=== PATIENT | male | born 1960 | race Caucasian/White ===

== ENCOUNTER 2023-11-08 08:29 | Outpatient (OUT) | payer OTHER, SELFPAY ==
[2023-11-08 08:55] LABS: Basophils Absolute Auto 0.1 10^3/uL (0.0-0.1); Basophils Percent Auto 2.1 % (0.2-2.0); Eosinophils Absolute Auto 0.3 10^3/uL (0.0-0.7); Eosinophils Percent Auto 4.9 % (0.9-7.0); Hematocrit 43.2 % (42.0-54.0); Immature Granulocytes Abs Auto 0.02 10^3/uL (0.00-0.03); Immature Granulocytes Pct Auto 0.4 % (0.0-0.5); Lymphocytes Percent Auto 18.7 % (20.5-60.0); Mean Corpuscular HGB Conc 34.7 g/dL (29.9-35.2); Mean Corpuscular Hemoglobin 31.7 pg (25.9-34.0); Mean Corpuscular Volume 91.3 fL (80.0-94.0); Mean Platelet Volume 11.2 fL (9.5-13.5); Monocytes Absolute Auto 0.6 10^3/uL (0.3-0.8); Monocytes Percent Auto 11.3 % (1.7-12.0); Neutrophils Absolute Auto 3.2 10^3/uL (1.4-6.5); Neutrophils Percent Auto 62.6 % (43.0-75.0); Platelet Count 187 10^3/uL (150-450); Red Blood Count 4.73 10^6/uL (4.70-6.10); Red Cell Distribution Width 12.6 % (11.0-15.0); White Blood Count 5.1 10^3/uL (4.0-11.0)
== END 2023-11-08 08:30 | disposition home or self-care (01) ==
LOC: LAB 08:32
PROVIDERS: PCP Internal Medicine; Visit Provider Internal Medicine
DX: Z00.00 Encounter for general adult medical examination without abnormal findings (principal)
CPT/HCPCS: 36415; 85025

== ENCOUNTER 2024-01-01 20:06 | Outpatient (OUT) | payer OTHER, SELFPAY ==
--- NOTE | 2024-01-01 | XR_ITS ---
[facility] [id number] Patient Name: DYLON JOHNSON MRN: [id number] date: 1960 Sex: M Assigned Patient Location: RAD Current Patient Location: [facility] Accession/Order Number: [id number] Exam Date: 01/01/2024 20:20 Report Date: 01/03/2024 09:21 At the request of: SOPHIA ALEXANDER Procedure: XR lumbar spine 6V w bending EXAMINATION: XR lumbar spine 6V w bending HISTORY: Low back pain M54.5 , right leg pain; no known injury COMPARISON: CT abdomen pelvis 04/26/2021 FINDINGS: BONES: Slight left convex curvature lumbar spine. Minimal grade 1 retrolisthesis of L3 on 4 and anterior listhesis of L4 on 5. Moderate degenerative facet arthropathy L3-L4 through L5-S1. DISC SPACES: Mild narrowing L3-L4 through L5-S1. PARASPINOUS: Negative. No paraspinous abnormality is seen. OTHER: Negative. XR/XR lumbar spine 6V w bending IMPRESSION: 1. Multilevel moderate degenerative changes of lumbar spine; slightly progressed compared to prior study. Electronically authenticated by: CHIP MONTERO Date: 01/03/2024 09:21
--- OUTSIDE RECORDS SUMMARY | 2024-01-01 20:12 | XMS_ITS | CCD ---
Author Name Unknown Address [address] [place] [id number] Organization [facility] Care Team Providers Care Page Makeup System Operator Name Role Phone DR TOO ALEXANDER Primary Care Unavailable REQUEST, NONE LISTED Admitting Unavaila ble REQUEST, NONE LISTED Attending Unavaila ble REQUEST, NONE LISTED Consulting Unavaila ble Too Alexander Unavailable Too Alexander Primary Care Unavailable Allergies Allergy Classification Reported Allergen(s) Allergy Type Date of Onset Reaction(s) Facility (1 source) Sulfonamides (Antibiotic) Drug allergy (disorder) 4 [facility] Repository (2 sources) Sulf-10 Drug allergy Unknown [facility] Other (2 sources) Substance with sulfonamide structure and antibacterial mechanism of action (substance) Drug allergy 4 Unknown [facility] Other Medications Current Medications Medication Drug Class(es) Dates Sig (Normalized) Sig (Original) acetaminophen 325 mg / oxyCODONE hydrochloride 5 mg oral tablet (2 sources) Opioid Agonist Start: 04-13-2018 take 1 tablet by mouth every four to six hours as needed oxyCODONE-Acetamin ophen 5-325 MG 1 tablet as needed Orally every 4-6 hours Mar, Active atorvastatin 20 mg oral tablet (2 sources) HMG-CoA Reductase Inhibitor take 1 tablet by mouth once daily in the evening Atorvastatin Calcium 20 MG TAKE 1 TABLET BY MOUTH ONCE DAILY IN THE EVENING Active Completed/Discontinued Medications Medication Drug Class(es) Dates Sig (Normalized) Sig (Original) gabapentin 300 mg oral capsule (2 sources) Anti-epileptic Agent Start: 12-02-2017 take 1 capsule by mouth once daily at bedtime Gabapentin 300 MG 1 capsule before bedtime Orally Once a day at bedtime for 30 day(s) Nov, Not-Taking/PRN traMADol hydrochloride 50 mg oral tablet (2 sources) Opioid Agonist Start: 12-02-2017 take 1-2 tablets by mouth every four to six hours as needed traMADol HCl 50 MG 1-2 tablet as needed Orally every 4-6 hrs Nov, Not-Taking/PRN Triamcinolone (2 sources) Corticosteroid Start: 08-28-2016 KENALOG - 10 mg Aug, 60 mg Problems Problem Classification Problem Date Documented Da te Episodic/Chronic Disorders of lipid metabolism (1 source) Mixed hyperlipidemia Chronic Other liver diseases (3 sources) Fatty (change of) liver, not elsewhere classified; Translations: [Nonalcoholic fatty liver disease] Chronic Other nervous system disorders (4 sources) Cubital tunnel syndrome; Translations: [Lesion of ulnar nerve, left upper limb] Chronic Other nervous system disorders (4 sources) Carpal tunnel syndrome of right wrist; Translations: [Carpal tunnel syndrome, right upper limb] Chronic Other nervous system disorders (4 sources) Carpal tunnel syndrome of left wrist; Translations: [Carpal tunnel syndrome, left upper limb] Chronic Other nutritional; endocrine; and metabolic disorders (2 sources) Severe obesity; Translations: [Morbid (severe) obesity due to excess calories] Chronic Other nutritional; endocrine; and metabolic disorders (4 sources) Body mass index 30+ - obesity; Translations: [Obesity, unspecified] Chronic Other nutritional; endocrine; and metabolic disorders (1 source) Morbid (severe) obesity due to excess calories Chronic Other nutritional; endocrine; and metabolic disorders (1 source) Body mass index (BMI) 35.0-35.9, adult Chronic Other screening for suspected conditions (not mental disorders or infectious disease) (1 source) Encounter for screening for malignant neoplasm of prostate Episodic Residual codes; unclassified (2 sources) Postprocedural state finding; Translations: [Other specified postprocedural states] Episodic Substance-related disorders (3 sources) Tobacco dependence in remission; Translations: [Nicotine dependence, cigarettes, in remission] Chronic Results Test Name Value Interpretation Reference Range Facility Consent Formson 09-23-2023 Consent Forms [id number] [facility] CMP Standardon 08-14-2023 eGFR Non AA >60 Invalid Interpretation Code [facility] Comment on above: Performed By: #### 1 [id number], [id number], [id number], 9334844, 3763317, 9665191, 8073353, 6574816 #### [facility] (DEFAULT) [address] [place] [address] eGFR AA >60 Invalid Interpretation Code [facility] Comment on above: Performed By: #### 1 [id number], 9229615, [id number], 6662622, 8353048, 7803255, 5134081, 1809612 #### [facility] (DEFAULT) [address] [place] [address] Albumin [Mass/Vol] 4.0 g/dL Normal 3.5-5.0 [facility] Comment on above: Performed By: #### 1 [id number], 5308715, [id number], 9602151, 9534666, 4375030, 0620105, 9268406 #### [facility] (DEFAULT) [address] [place] [address] Alk Phos 82 IU/L Normal 32-91 [facility] Comment on above: Performed By: #### 1 [id number], 3172301, [id number], 5313319, 9942160, 0646796, 2604290, 8424165 #### [facility] (DEFAULT) [address] [place] [address] ALT [Catalytic activity/Vol] 28.0 U/L Normal 17.0-63.0 [facility] Comment on above: Performed By: #### 1 [id number], 4118054, 5663627698, 0800838, 0295363, 3579996, 2713101, 8091453 #### [facility] (DEFAULT) [address] [place] [address] AST [Catalytic activity/Vol] 27 U/L Normal 15-41 [facility] Comment on above: Performed By: #### 1 [id number], 0230488, [id number], 6654126, 7376659, 8883073, 5872064, 2548525 #### [facility] (DEFAULT) [address] [place] [address]57[address] Bili Total 1.0 mg/dL Normal 0.3-1.2 [facility] Comment on above: Performed By: #### 1 [id number], 5587426, 1297088411, 8297920, 9094791, 2903879, 1190743, 4879243 #### [facility] (DEFAULT) [address] [place] [address] 31946 Calcium [Mass/Vol] 9.0 mg/dL Normal 8.9-10.3 [facility] Comment on above: Performed By: #### 1 [id number], 0094873, 9317869842, 4128426, 5909544, 8165170, 5435432, 8962711 #### [facility] (DEFAULT) [address] [place] [address]2961 Chloride [Moles/Vol] 108 mmol/L Normal 101-111 [facility] Comment on above: Performed By: #### 1 [id number], 1403502, 1052928404, 9468422, 4132492, 1550762, 1245756, 4730017 #### [facility] (DEFAULT) [address] [place] [address] 88064 CO2 [Moles/Vol] 26 mmol/L Normal 21-32 [facility] Comment on above: Performed By: #### 1 [id number], 7363977, 8060462121, 5006042, 6488098, 2937159, 1018561, 7853912 #### [facility] (DEFAULT) [address] [place] [address] 93882 Creatinine [Mass/Vol] 0.74 mg/dL Low 0.90-1.30 [facility] Comment on above: Performed By: #### 1 [id number], 4700999, 2775741761, 8851837, 4346811, 0624622, 8928102, 2287119 #### [facility] (DEFAULT) [address] [place] [address] 35591 Glucose [Mass/Vol] 98.0 mg/dL Normal 74.0-118.0 [facility] Comment on above: Performed By: #### 1 [id number], 0007809, 9275059045, 4242575, 1834545, 5953754, 8184712, 0091282 #### [facility] (DEFAULT) [address] [place] [address] 30409 Potassium [Moles/Vol] 3.9 mmol/L Normal 3.6-5.1 [facility] Comment on above: Performed By: #### 1 [id number], 5275277, 6729789987, 4875193, 1046563, 1532013, 4619392, 2826919 #### [facility] (DEFAULT) [address] [place] [address] 66682 Protein [Mass/Vol] 6.6 g/dL Normal 6.5-8.1 [facility] Comment on above: Performed By: #### 1 [id number], 7876481, 4250762557, 6848243, 7010540, 2277404, 0092994, 1617969 #### [facility] (DEFAULT) [address] [place] [address] 25961 Sodium [Moles/Vol] 140.0 mmol/L Normal 136.0-144.0 [facility] Comment on above: Performed By: #### 1 [id number], 6638338, 9387285051, 4170462, 4140530, 9456809, 7453575, 6232766 #### [facility] (DEFAULT) [address] [place] [address] 26270 Urea nitrogen [Mass/Vol] 16 mg/dL Normal 8-26 [facility] Comment on above: Performed By: #### 1 [id number], 4541642, 4412759708, 7740535, 3516299, 7487663, 9857386, 8175067 #### [facility] (DEFAULT) [address] [place] [address] 69981 Albumin/Globulin [Mass ratio] 1.5 {ratio} Normal 1.4-2.6 [facility] Comment on above: Performed By: #### 1 [id number], 4677792, 1807969483, 5871065, 6901623, 9297919, 5834867, 7203179 #### [facility] (DEFAULT) [address] [place] [address] 15256 Anion gap [Moles/Vol] 9.9 mmol/L Normal 5.0-19.0 [facility] Comment on above: Performed By: #### 1 [id number], 1031817, 0874085462, 7546088, 1772597, 1787541, 1336702, 9220696 #### [facility] (DEFAULT) [address] [place] [address] 46224 Globulin (S) [Mass/Vol] 2.6 g/dL Normal 1.5-4.3 [facility] Comment on above: Performed By: #### 1 [id number], 1171772, 1728959496, 2140885, 3252066, 2644993, 2335131, 8473310 #### [facility] (DEFAULT) [address] [place] [address] Osmolality 280 mOsm/L Invalid Interpretation Code [facility] Comment on above: Performed By: #### 1 [id number], 4642378, 6111833224, 4399159, 9959035, 4143053, 1073352, 7786102 #### [facility] (DEFAULT) [address] [place] [address] 13562 Urea nitrogen/Creatinine [Mass ratio] 21.6 mg/mg High 4.6-16.2 [facility] Comment on above: Performed By: #### 1 [id number], 0634225, 3343679827, 6235654, 6330983, 0811785, 6411992, 3207962 #### [facility] (DEFAULT) [address] [place] [address] 42724 GGTon 08-14-2023 Gamma glutamyl transferase [Catalytic activity/Vol] 27.0 U/L Normal 7.0-50.0 [facility] Comment on above: Performed By: #### 1 [id number], 8667154, 8859255491, 2382223, 2820316, 6058506, 5205092, 6557070 #### [facility] (DEFAULT) [address] [place] [address] 03749 Iron Levelon 08-14-2023 Iron [Mass/Vol] 103.0 ug/dL Normal 45.0-182.0 [facility] Comment on above: Performed By: #### 1 [id number], 9111755, 4396604487, 9297124, 0202702, 6392601, 3114916, 8237600 #### [facility] (DEFAULT) [address] [place] [address] 68913 LDHon 08-14-2023 LDH 181.0 IU/L Normal 98.0-192.0 [facility] Comment on above: Performed By: #### 1 [id number], 7188120, 7599442843, 4819116, 5632646, 1865528, 9470152, 3189325 #### [facility] (DEFAULT) [address] [place] [address] 19917 Lipid Panel Standardon 08-14 Cholesterol [Mass/Vol] 254.0 mg/dL High 66.0-200.0 [facility] Comment on above: Performed By: #### 1 [id number], 4627463, 5875088824, 7934235, 5038788, 7543876, 2223380, 8226131 #### [facility] (DEFAULT) [address] [place] [address] 55041 Cholesterol in HDL [Mass/Vol] 56 mg/dL Normal 40-71 [facility] Comment on above: Performed By: #### 1 [id number], 9139157, 4190857025, 1874816, 7613334, 2572088, 8964179, 9219085 #### [facility] (DEFAULT) [address] [place] [address] 61793 Triglyceride [Mass/Vol] 132.0 mg/dL Normal 0.0-150.0 [facility] Comment on above: Performed By: #### 1 [id number], 4730130, 6242942049, 8208820, 6321896, 3909677, 7984239, 3979086 #### [facility] (DEFAULT) [address] [place] [address] 33171 Cholesterol in LDL [Mass/Vol] 171 mg/dL High 1-100 [facility] Comment on above: Performed By: #### 1 144756879, 9745009, 2671043336, 8161646, 7441828, 5476541, 0455296, 3230443 #### [facility] (DEFAULT) [address] [place] [address] 46056 Cholesterol.total/Ch olesterol in HDL [Mass ratio] 4.4 {ratio} Normal 0.0-4.5 [facility] Comment on above: Performed By: #### 1 [id number], 2519405, 9628818682, 4632376, 9924547, 0796598, 4160192, 6306647 #### [facility] (DEFAULT) [address] [place] [address] VLDL. 26 mg/dL Normal 5-40 [facility] Comment on above: Performed By: #### 1 [id number], 1132605, 0884116100, 4813720, 5353437, 9303455, 3980289, 0077620 #### [facility] (DEFAULT) [address] [place] [address] 84341 PSA Screenon 08-14-2023 PSA Screen 0.85 ng/mL Normal 0.00-4.00 [facility] Comment on above: Result Comment: [employer] Access Clinical System (Chemiluminescence) Values obtained with different assay methods or kits cannot be used interchangeably. Results cannot be interpreted as absolute evidence of the presence or absence of malignant disease. Performed By: #### 1 [id number], 1980231, 2295304741, 7896145, 6140925, 0681635, 6333799, 2743157 #### [facility] (DEFAULT) [address] [place] [address] 81582 Phoson 08-14-2023 Phosphate [Mass/Vol] 2.6 mg/dL Normal 2.5-4.6 [facility] Comment on above: Performed By: #### 1 [id number], 6564460, 6871792543, 8654219, 8178702, 7906857, 9036459, 9019543 #### [facility] (DEFAULT) [address] [place] [address] 46840 Uric Acidon 08-14-2023 Urate [Mass/Vol] 7.2 mg/dL Normal 4.8-8.7 [facility] Comment on above: Performed By: #### 1 [id number], 4951303, 5211383927, 8893847, 6980802, 6149383, 7366560, 3393295 #### [facility] (DEFAULT) [address] [place] [address] RUBÉN - LIPID PROFILEon 2022 CHOL-HDL RATIO NORM SEE BELOW Normal [facility] Comment on above: Result Comment: 3.3 - 4.4 LOW RISK 4.4 - 7.1 AVERAGE RISK 7.1 - 11.0 MODERATE RISK >11.0 HIGH RISK Performed By: #### D MAINOR ABDULLAHIL #### [facility] [address] [place] [address] Dr. Neptali Wade Cholesterol [Mass/Vol] 260 mg/dL Critically high <=200 [facility] Comment on above: Performed By: #### D MAINOR ABDULLAHIL #### [facility] [address] [place] [address] Dr. Neptali Wade Cholesterol in HDL [Mass/Vol] 38 mg/dL Critically low 40-60 [facility] Comment on above: Performed By: #### D KAYLEN DLDL #### [facility] [address] [place] [address] Dr. Neptali Wade Cholesterol.total/Ch olesterol in HDL [Mass ratio] 6.8 {ratio} Normal [facility] Comment on above: Performed By: #### D KAYLEN DLDL #### [facility] [address] [address] [address] Neptali Wade HDL NORMAL > or = 60 mg/dl - LOW CARDIOVASCULAR RISK <40 mg/dl - HIGH CARDIOVASCULAR RISK Normal [facility] Comment on above: Performed By: #### D KAYLEN DLDL #### [facility] [address] [place] [address] Dr. Neptali Wade LDL CALC NORMAL SEE BELOW Normal [facility] Comment on above: Result Comment: <100 mg/dl OPTIMAL 100 - 129 mg/dl NEAR OR ABOVE OPTIMAL 130 - 159 mg/dl BORDERLINE HIGH 160 - 189 mg/dl HIGH >190 mg/dl VERY HIGH Performed By: #### D ATLIPI, DLDL #### [facility] [address] [address] [address] Neptali Wade Triglyceride [Mass/Vol] 476 mg/dL Critically high <=150 [facility] Comment on above: Performed By: #### D ATLIPI, DLDL #### [facility] [address] [address] [address] Neptali Wade VLDL CALC 95.2 mg/dL Normal [facility] Comment on above: Performed By: #### D ATLIPI, DLDL #### [facility] [address] [address] [address] Neptali Wade DIRECT LDLon 10-22-2022 Cholesterol in LDL [Mass/Vol] 116 mg/dL Normal [facility] Comment on above: Performed By: #### D KAYLEN, DLDL #### [facility] [address] [address] [address] Neptali Wade DLDL NORMAL SEE BELOW Normal [facility] Comment on above: Result Comment: <100 mg/dl OPTIMAL 100 - 129 mg/dl NEAR OR ABOVE OPTIMAL 130 - 159 mg/dl BORDERLINE HIGH 160 - 189 mg/dl HIGH >190 mg/dl VERY HIGH Performed By: #### D KAYLEN, DLDL #### [facility] [address] [address] [address] Neptali Wade GLYCOHEMOGLOBIN A1Con 2022 ADA RECOMMENDATION SEE BELOW Normal [facility] Comment on above: Result Comment: ADA RECOMMENDED LIMIT 4.0 - 6.0 ADA THERAPEUTIC TARGET < 7.0 ACTION SUGGESTED > 7.0 Performed By: #### D ATA1C #### [facility] [address] [address] [address] Neptali Wade Glucose [Mass/Vol] 100 mg/dL Normal [facility] Comment on above: Performed By: #### D ATA1C #### [facility] [address] [address] [address] Neptali Wade HbA1c (Bld) [Mass fraction] 5.1 % Normal 4.5-6.2 [facility] Comment on above: Performed By: #### D ATA1C #### [facility] [address] [address] [address] Neptali Wade Blood Urea Nitrogenon 2020 Urea nitrogen [Mass/Vol] 13 mg/dL Normal 07-12 [facility] Comment on above: Performed By: #### B UN, CBC, LYTES, CREAT #### [address] Complete Blood Count Auto Di ffon 10-09-2021 Basophils (Bld) [#/Vol] 0.0 10*3/uL Normal 0.0-0.2 [facility] Comment on above: Result Comment: PERF ORMED BY: [place] [address] PATHOLOGIST GENERATOR MAN AYSHA IZAGUIRRE M.D. Performed By: #### B UN, CBC, LYTES, CREAT #### [address] Basophils/100 WBC (Bld) 0.3 % Normal . [facility] Comment on above: Performed By: #### B UN, CBC, LYTES, CREAT #### [address] Eosinophils (Bld) [#/Vol] 0.0 10*3/uL Normal 0.0-0.45 [facility] Comment on above: Performed By: #### B UN, CBC, LYTES, CREAT #### [address] Eosinophils/100 WBC (Bld) 0.0 % Normal . [facility] Comment on above: Performed By: #### B UN, CBC, LYTES, CREAT #### [address] Erythrocyte distribution width (RBC) [Ratio] 12.8 % Normal 12.0-14.8 [facility] Comment on above: Performed By: #### B UN, CBC, LYTES, CREAT #### [address] Hematocrit (Bld) [Volume fraction] 41.2 % Normal 38.8-50.0 [facility] Comment on above: Performed By: #### B UN, CBC, LYTES, CREAT #### [address] Hemoglobin (Bld) [Mass/Vol] 14.3 g/dL Normal 13.0-17.0 [facility] Comment on above: Performed By: #### B UN, CBC, LYTES, CREAT #### [address] Lymphocytes (Bld) [#/Vol] 0.7 10*3/uL Low 1.00-4.8 [facility] Comment on above: Performed By: #### B UN, CBC, LYTES, CREAT #### [address] Lymphocytes/100 WBC (Bld) 4.2 % Normal . [facility] Comment on above: Performed By: #### B UN, CBC, LYTES, CREAT #### [address] MCH (RBC) [Entitic mass] 31.4 pg Normal 27.5-35.2 [facility] Comment on above: Performed By: #### B UN, CBC, LYTES, CREAT #### [address] MCV (RBC) [Entitic vol] 90.7 fL Normal 83.5-101 [facility] Comment on above: Performed By: #### B UN, CBC, LYTES, CREAT #### [address] Mean Corpuscular HGB Conc 34.7 g/dL Normal 32.5-35.6 [facility] Comment on above: Performed By: #### B UN, CBC, LYTES, CREAT #### [address] Monocytes (Bld) [#/Vol] 0.9 10*3/uL High 0.0-0.8 [facility] Comment on above: Performed By: #### B UN, CBC, LYTES, CREAT #### [address] Monocytes/100 WBC (Bld) 5.0 % Normal . [facility] Comment on above: Performed By: #### B UN, CBC, LYTES, CREAT #### [address] Neutrophils (Bld) [#/Vol] 15.7 10*3/uL High 1.8-7.7 [facility] Comment on above: Performed By: #### B UN, CBC, LYTES, CREAT #### [address] Neutrophils/100 WBC (Bld) 90.5 % Normal . [facility] Comment on above: Performed By: #### B UN, CBC, LYTES, CREAT #### [address] Nucleated RBC/100 WBC (Bld) [Ratio] 0.1 % Normal 0-0.5 [facility] Comment on above: Performed By: #### B UN, CBC, LYTES, CREAT #### [address] Platelet mean volume (Bld) [Entitic vol] 9.6 fL Normal 6.6-10.1 [facility] Comment on above: Performed By: #### B UN, CBC, LYTES, CREAT #### [address] Platelets (Bld) [#/Vol] 179 10*3/uL Normal 150-450 [facility] Comment on above: Performed By: #### B UN, CBC, LYTES, CREAT #### [address] RBC (Bld) [#/Vol] 4.54 10*6/uL Normal 3.90-5.60 [facility] Comment on above: Performed By: #### B UN, CBC, LYTES, CREAT #### [facility] [address] [place] [address] WBC (Bld) [#/Vol] 17.3 10*3/uL High 4.5-11.0 [facility] Comment on above: Performed By: #### B UN, CBC, LYTES, CREAT #### [facility] [address] [place] [address] Creatinineon 10-09-2021 Creatinine [Mass/Vol] 0.79 mg/dL Normal 0.64-1.27 [facility] Comment on above: Performed By: #### B UN, CBC, LYTES, CREAT #### [address] Creatinine Clr Calc Pharmacy 105.22 [facility] Comment on above: Result Comment: PERF ORMED BY: [place] [address] PATHOLOGIST GENERATOR MAN AYSHA IZAGUIRRE M.D. Performed By: #### B UN, CBC, LYTES, CREAT #### [address] Estimated GFR ( Ambreen > 60 [facility] Comment on above: Result Comment: GFR estimated reference range: According to KDOQI guidelines, <60 ml/min/1.73m2 is sufficient to diagnose a patient with chronic kidney disease. Performed By: #### B UN, CBC, LYTES, CREAT #### [address] Estimated GFR (Non- Am > 60 [facility] Comment on above: Performed By: #### B UN, CBC, LYTES, CREAT #### [address] Electrolyteson 10-09-2021 Chloride [Moles/Vol] 105 mmol/L Normal 95-114 [facility] Comment on above: Performed By: #### B UN, CBC, LYTES, CREAT #### [address] CO2 [Moles/Vol] 17.8 mmol/L Low 22.0-30.0 [facility] Comment on above: Performed By: #### B UN, CBC, PRINCE, ACEAT #### [facility] [address] Potassium [Moles/Vol] 4.5 mmol/L Normal 3.5-5.1 [facility] Comment on above: Performed By: #### B UN, CBC, PRINCE, CREAT #### [facility] [address] Sodium [Moles/Vol] 137 mmol/L Normal 136-146 [facility] Comment on above: Performed By: #### B UN, CBC, KEL MORRISON #### [place] [id number] [facility] Jose 10-08-2021 L Specimen: [id number] Received: 10/09/21 Status: JUSTIN Michelle Num: [id number] Spec Type: Surgical Subm Dr: Jon De La Cruz DO Tissues: A Hernia Sac (HERNIA SAC) Procedures: HE Stain, Gross/Micro L2 Patient Age/Sex Location Account Attending Physician Dylon Jefferson 61/M [place] [id number] Jon De La CruzDO SPEC NUM: [id number] RECD: 10/09/21 STATUS: JUSTIN MICHELLE NUM: [id number] BILLY: 10/08/21- SUBM DR: Jon De La Cruz DO ENTERED: 10/09/21 KATYA DR: JOSY TYPE: Surgical DEPT: S ORDERED: HE Stain, Gross/Micro L2 ORDERED: HE Stain, Gross/Micro L2 Pathological Diagnosis Soft tissue, site not specified, excision: - Benign fibroadipose tissue with focal mild chronic inflammation, compatible with hernia sac Clinical Information Incisional hernia Gross Description Received in 10% neutral buffered formalin, labeled with the patient's name, number and hernia sac is a 6.2 x 3.5 x 2.5 cm aggregate of yellow, lobulated adipose tissue and go- pink fibrous tissue. Technical Support Coordinator sections are submitted in one cassette labeled A1. (SM/JS) Microscopic Description One glass slide with H E stained material has been examined. The microscopic findings support the above pathologic diagnosis. [id number] Specimen: [id number] Received: 10/09/21 Status: JUSTIN Michelle Num: [id number] Spec Type: Surgical Subm Dr: Jon De La Cruz DO Tissues: A Hernia Sac (HERNIA SAC) Procedures: HE Stain, Gross/Micro L2 Patient: Dylon Jefferson [id number] (Continued) Signed (signature on file) Aysha Izaguirre MD 10/10/21 1628 Normal [facility] COVID-19 [facility] [place] SARS-CoV-2 (COVID-19) RNA RONNIE+probe Ql (Unsp spec) Negative Normal Negative [facility] Comment on above: Order Comment: Healt hcare Worker?: N Result Comment: Testing for SARS-CoV-2 by RT-PCR This test was developed and its performance characteristics determined by [employer] and validated at the [facility]. This test has not been FDA cleared or approved. This test has been authorized by FDA under an Emergency Use Authorization (EUA). This test has been validated in accordance with the FDA's Guidance Document (Policy for Diagnostics Testing in Laboratories Certified to Perform High Complexity Testing under CLIA prior to Emergency Use Authorization for Coronavirus Disease-2019 during the Public Health Emergency) issued on January 20, 2020. This test is only authorized for the duration of time the declaration that circumstances exist justifying the authorization of the emergency use of in vitro diagnostic tests for detection of SARS-CoV-2 virus and/or diagnosis of COVID-19 infection under section 564(b)(1) of the Act, 21 U.S.C. 360bbb-3(b)(1), unless the authorization is terminated or revoked sooner. PERFORMED BY: [place] [address] PATHOLOGIST GENERATOR MAN AYSHA IZAGUIRRE M.D. Performed By: #### C OVID 19 [facility] #### [address] Basic Metabolic Panelon 12-0 Calcium [Mass/Vol] 9.1 mg/dL Normal 8.2-10.2 [facility] Comment on above: Result Comment: PERF ORMED BY: [place] [address] PATHOLOGIST GENERATOR MAN AYSHA IZAGUIRRE M.D. Performed By: #### B MP, CBC #### [place] [address] [place] Chloride [Moles/Vol] 106 mmol/L Normal 95-114 [facility] Comment on above: Performed By: #### B MP, CBC #### [address] CO2 [Moles/Vol] 24.0 mmol/L Normal 22.0-30.0 [facility] Comment on above: Performed By: #### B MP, CBC #### [address] Creatinine [Mass/Vol] 0.71 mg/dL Normal 0.64-1.27 [facility] Comment on above: Performed By: #### B MP, CBC #### [address] Estimated GFR ( Ambreen > 60 Normal [facility] Comment on above: Result Comment: GFR estimated reference range: According to KDOQI guidelines, <60 ml/min/1.73m2 is sufficient to diagnose a patient with chronic kidney disease. Performed By: #### B MP, CBC #### [address] Estimated GFR (Non- Am > 60 Normal [facility] Comment on above: Performed By: #### B MP, CBC #### [address] Glucose [Mass/Vol] 92 mg/dL Normal 70-100 [facility] Comment on above: Result Comment: [place] Glucose Reference Range is dependent on time and content of last meal. Glucose of more than 200 mg/dL in a nonstressed, ambulatory subject supports the diagnosis of Diabetes Mellitus. ADA recommended reference range Performed By: #### B MP, CBC #### [address] Potassium [Moles/Vol] 3.8 mmol/L Normal 3.5-5.1 [facility] Comment on above: Performed By: #### B MP, CBC #### [address] Sodium [Moles/Vol] 138 mmol/L Normal 136-146 [facility] Comment on above: Performed By: #### B MP, CBC #### [address] Urea nitrogen [Mass/Vol] 11 mg/dL Normal 9-23 [facility] Comment on above: Performed By: #### B MP, CBC #### [address] Complete Blood Count Auto Di ffon 09-25-2021 Basophils (Bld) [#/Vol] 0.1 10*3/uL Normal 0.0-0.2 [facility] Comment on above: Result Comment: PERF ORMED BY: [place] [address] PATHOLOGIST GENERATOR MAN AYSHA IZAGUIRRE M.D. Performed By: #### B MP, CBC #### [address] Basophils/100 WBC (Bld) 1.7 % Normal . [facility] Comment on above: Performed By: #### B MP, CBC #### [place] [address] [place] Eosinophils (Bld) [#/Vol] 0.2 10*3/uL Normal 0.0-0.45 [facility] Comment on above: Performed By: #### B MP, CBC #### [address] Eosinophils/100 WBC (Bld) 3.9 % Normal . [facility] Comment on above: Performed By: #### B MP, CBC #### [address] Erythrocyte distribution width (RBC) [Ratio] 12.9 % Normal 12.0-14.8 [facility] Comment on above: Performed By: #### B MP, CBC #### [address] Hematocrit (Bld) [Volume fraction] 42.7 % Normal 38.8-50.0 [facility] Comment on above: Performed By: #### B MP, CBC #### [place] [address] [place] Hemoglobin (Bld) [Mass/Vol] 15.2 g/dL Normal 13.0-17.0 [facility] Comment on above: Performed By: #### B MP, CBC #### [place] [address] [place] Lymphocytes (Bld) [#/Vol] 1.1 10*3/uL Normal 1.00-4.8 [facility] Comment on above: Performed By: #### B MP, CBC #### [place] [address] [place] Lymphocytes/100 WBC (Bld) 19.9 % Normal . [facility] Comment on above: Performed By: #### B MP, CBC #### [facility] [address] MCH (RBC) [Entitic mass] 31.9 pg Normal 27.5-35.2 [facility] Comment on above: Performed By: #### B MP, CBC #### [facility] [address] MCV (RBC) [Entitic vol] 89.5 fL Normal 83.5-101 [facility] Comment on above: Performed By: #### B MP, CBC #### [facility] [address] Mean Corpuscular HGB Conc 35.7 g/dL High 32.5-35.6 [facility] Comment on above: Performed By: #### B MP, CBC #### [facility] [address] Monocytes (Bld) [#/Vol] 0.5 10*3/uL Normal 0.0-0.8 [facility] Comment on above: Performed By: #### B MP, CBC #### [facility] [address] Monocytes/100 WBC (Bld) 8.7 % Normal . [facility] Comment on above: Performed By: #### B MP, CBC #### [facility] [address] Neutrophils (Bld) [#/Vol] 3.6 10*3/uL Normal 1.8-7.7 [facility] Comment on above: Performed By: #### B MP, CBC #### [facility] [address] Neutrophils/100 WBC (Bld) 65.8 % Normal . [facility] Comment on above: Performed By: #### B MP, CBC #### [facility] [address] Nucleated RBC/100 WBC (Bld) [Ratio] 0.1 % Normal 0-0.5 [facility] Comment on above: Performed By: #### B MP, CBC #### [facility] [address] Platelet mean volume (Bld) [Entitic vol] 9.0 fL Normal 6.6-10.1 [facility] Comment on above: Performed By: #### B MP, CBC #### [facility] [address] Platelets (Bld) [#/Vol] 179 10*3/uL Normal 150-450 [facility] Comment on above: Performed By: #### B MP, CBC #### [facility] [address] RBC (Bld) [#/Vol] 4.77 10*6/uL Normal 3.90-5.60 [facility] Comment on above: Performed By: #### B MP, CBC #### [facility] [address] WBC (Bld) [#/Vol] 5.4 10*3/uL Normal 4.5-11.0 [facility] Comment on above: Performed By: #### B MP, CBC #### [address] ECG 12 lead ECGon 09-25-2021 ECG 12 lead ECG [facility] [address] [place] [address] Electrocardiograph Report Signed Patient: Dylon Jefferson MR#: [id number] 221 : 1960 Acct:[id number] Age/Sex: 61 / M ADM Date: 09/25/21 Loc: Room: Type: [facility] Attending Dr: Jon De La Cruz DO Ordering Provider: Jon De La Cruz DO Date of Service: 09/25/2105/09/1039 ECG/ECG 12 lead ECG: OR 10/08/21 Copies to: Test Reason : Blood Pressure : / mmHG Vent. Rate : 063 BPM Atrial Rate : 063 BPM P-R Int : 148 ms QRS Dur : 080 ms QT Int : 408 ms P-R-T Axes : 020 -25 003 degrees QTc Int : 417 ms Sinus rhythm with occasional premature ventricular complexes Low voltage QRS Abnormal ECG When compared with ECG of 16-JAN-2018 17:39, premature ventricular complexes are now present Confirmed by ADRY ALEXANDER DO ([id number]) on 09/25/2021 12:14:29 PM Referred By: WALLACE DE LA CRUZ Electronically Signed By:ADRY ALEXANDER DO Transcribed By: MUS Signed By Adry Alexander DO 09/25 1214 [facility] Vital Signs Date Time Vital Sign Value Performing Clinician Facility 08-18-2023 14:00-0400 Body height 167.64 cm Too Alexanedr Other [facility] Other 08-18-2023 14:00-0400 Body mass index (BMI) [Ratio] 35.09 kg/m2 Too Alexander Other [facility] Other 08-18-2023 14:00-0400 Body weight 98.61 kg Too Wallace Other [facility] Other 08-18-2023 14:00-0400 Diastolic blood pressure 82 mm[Hg] Too Wallace Other [facility] Other 08-18-2023 14:00-0400 Respiratory rate 16 /min Too Alexander Other [facility] Other 08-18-2023 14:00-0400 Systolic blood pressure 123 mm[Hg] Too Alexander Other [facility] Other Encounters Encounter Date Encounter Type Care Provider Facility Start: 11-10-2023 End: 11-10-2023 ambulatory Too Alexander Other [facility] Other Start: 11-10-2023 Telephone encounter [facility] Start: 08-19-2023 End: 08-20-2023 ambulatory Too Alexander Facility:[facility] Start: 08-18-2023 End: 08-18-2023 ambulatory Too Alexander Other [facility] Other Start: 08-18-2023 Encounter for genera l adult medical examination without abnormal findings Too Alexander [facility] Start: 08-18-2023 Periodic preventive med est patient 40-64yrs Too Alexander [facility] Start: 10-22-[address] TOO ALEXANDER Facili ty:[facility]1 Immunizations Immunization Date Immunization Notes Care Provider Fa cility 08-05-2019 influenza virus vaccine, split virus (incl. purified surface antigen) Too Alexander Other [facility] Other 04-01-2017 diphtheria, tetanus toxoids and acellular pertussis vaccine Too Alexander Other [facility] Other 05-09-2016 diphtheria, tetanus toxoids and acellular pertussis vaccine, unspecified formulation Too Alexander Other [facility] Other Payers Date Payer Category Payer Self-pay [id number] Unknown [id number] Unknown [id number] Social History Date Type Detail Facility Unknown if ever smoked [facility] Other Sex Assigned At Sex Assigned At Bir th [facility] Other Evaluation note 08-18-2023 Note Date & Type Note Facility 08-18-2023 Evaluation note Encounter Date Diagnosis Assessment Notes Jul, Wellness examination (ICD-10 - Z00.00) Healthy diet and exercise. Reviewed age-appropriate preventive testing recommended. Jul, Mixed hyperlipidemia (ICD-10 - E78.2) Instructed on diet and exercise with continued statin therapy.Discussed the beneficial effects of lowering cholesterol in reducing the risk for cerebrovascular and cardiovascular disease. Jul, Nonalcoholic fatty liver disease (ICD-10 - K76.0) Low fat, high protein diet and exercise. Encouraged to lose weight Encouraged to limit alcohol intake to <3 daily Jul, Morbid (severe) obesity due to excess calories (ICD-10 - E66.01) This patient has been instructed on a low-fat, high-fiber diet. They are instructed to reduce calories, portion sizes and snacks. It is recommended that they exercise for 30 minutes, 3-5 times weekly. Jul, Body mass index [BMI] 35.0-35.9, adult (ICD-10 - Z68.35) Jul, Cigarette nicotine dependence in remission (ICD-10 - F17.211) Continue abstinence. Jul, Screening PSA (prostate specific antigen) (ICD-10 - Z12.5) Yearly [place] and PSA Jul, Other This patient has been instructed on a low-fat, high-fiber diet. They are instructed to reduce calories, portion sizes and snacks. It is recommended that they exercise for 30 minutes, 3-5 times weekly. [facility] Other Evaluation note Note Date & Type Note Facility Evaluation note No Information [facility]sc[facility] Other History general Narrative - Reported Note Date & Type Note Facility History general Narrative - Reported Type Medical History Mixed hyperlipidemia Medical History Bilateral carpal tunnel syndrome Medical History Non-alcoholic fatty liver diseas e Medical History Cigarette nicotine d ependence in remission Surgical History knee surgery Surgical History right knee replacement Surgical History left partial knee replacement Surgical History carpal tunnel release Hospitalization History see above [facility] Other Summary Purpose Family History No Family History Records FoundNo Family History Records FoundNo Family History Records Found Advance Directives No Advanced Directives Records FoundNo Advanced Directives Records FoundNo Advanced Directives Records Found Additional Source Comments (unrecognized sect ion and content) No Status Records FoundNo Status Records FoundNo Status Records Found INFORMATION SOURCE (unrecogn ized section and content) DATE CREATED AUTHOR 01/07/2022 [facility] DATE CREATED AUTHOR AUTHOR'S ORGANIZ ATION 10/22/2022 [facility] DATE CREATED AUTHOR AUTHOR'S ORGANIZ ATION 09/25/2023 [facility] REASON FOR VISIT (unrecogniz ed section and content) [facility] results FOR RECORDS PERTAINING TO PATIENTS WHO ARE OR HAVE BEEN ENROLLED IN A CHEMICAL DEPENDENCY/SUBSTANCEABUSE PROGRAM, SOME INFORMATION MAY BE OMITTED. This clinical summary was aggregated from multiple sources. Caution should be exercised in using it in the provision of clinical care. This summary normalizes information from multiple sources, and as a consequence, information in this document may materially change the coding, format and clinical context of patient data. In addition, data may be omitted in some cases. CLINICAL DECISIONS SHOULD BE BASED ON THE PRIMARY CLINICAL RECORDS. [facility] provides no warranty or guarantee of the accuracy or completeness of information in this document.
== END 2024-01-01 20:07 | disposition home or self-care (01) ==
PROVIDERS: PCP Internal Medicine; Visit Provider Internal Medicine
DX: M54.50 Low back pain, unspecified (principal); M51.36 Other intervertebral disc degeneration, lumbar region
CPT/HCPCS: 72114

== ENCOUNTER 2024-01-27 14:21 | Outpatient (OUT) | payer OTHER, SELFPAY ==
--- NOTE | 2024-01-27 14:23 | MR_ITS ---
The [address] [address] Patient Name: DYLON JOHNSON MRN: [facility]:[id number] date: 1960 Sex: M Assigned Patient Location: MRI Current Patient Location: MRI Accession/Order Number: [id number] Exam Date: 01/27/2024 14:43 Report Date: 01/27/2024 16:18 At the request of: SOPHIA ALEXANDER Procedure: MR lumbar spine wo con EXAMINATION: MR lumbar spine wo con HISTORY: Spondylolisthesis Of Lumbar Region, Scoliosis Of Lumbar COMPARISON: No relevant comparison available. TECHNIQUE: A variety of imaging planes and parameters were utilized for visualization of suspected pathology. FINDINGS: For the purposes of numbering, sagittal T2 image # 8 extends from the T10-T11 vertebral body superiorly to the S3 level inferiorly. PARASPINAL AREA: Normal with no visible mass. BONES: Normal alignment with no acute fracture. 5 mm anterolisthesis of L4 in relation L5 CORD/CAUDA EQUINA: Normal caliber, contour, and signal intensity. DISC LEVELS: 12-L1: Early degenerative disc disease is present without focal protrusion or neural impingement. L1-L2: Moderate disc desiccation and disc space narrowing. Posterior subligamentous disc herniation with inferior migration extending posteriorly 3.6 mm with inferior migration measuring 8.9 mm on sagittal image #9. No central canal or foraminal stenosis L2-L3: Disc desiccation. Mild diffuse disc bulge. No central or foraminal stenosis L3-L4: Disc desiccation. Moderate diffuse disc/osteophyte complex most significant along the right neural foramen. Ligamentum flavum hypertrophy. No central canal or left foraminal stenosis. Moderate narrowing of the right neural foramen, sagittal image 10 L4-L5: 5 mm anterolisthesis of L4 in relation L5. Moderate bulge/pseudobulge with facet osteoarthropathy. No central or foraminal stenosis L5-S1: Moderate disc/osteophyte complex with facet osteoarthropathy most significant along the left neural foramen. No central canal or right foraminal stenosis. Moderate to severe narrowing of the left neural foramen sagittal image 4 MR/MR lumbar spine wo con IMPRESSION: Degenerative changes resulting in moderate right foraminal stenosis at L3-L4 and moderate to severe left foraminal stenosis at L5-S1 Electronically authenticated by: JOSE WHITTEN Date: 01/27/2024 16:18
== END 2024-01-27 14:22 | disposition home or self-care (01) ==
LOC: MRI 14:21
PROVIDERS: PCP Internal Medicine; Visit Provider Internal Medicine
DX: M43.16 Spondylolisthesis, lumbar region (principal); M41.56 Other secondary scoliosis, lumbar region; M54.50 Low back pain, unspecified; M79.604 Pain in right leg; M51.36 Other intervertebral disc degeneration, lumbar region
CPT/HCPCS: 72148

== ENCOUNTER 2024-09-12 12:21 | Emergency (ER) | payer OTHER, SELFPAY ==
--- OUTSIDE RECORDS SUMMARY | 2024-09-12 12:26 | XMS_ITS | CCD ---
Author Organization [facility] Care Team Providers Care Retail Sales Consultant Name Role Phone DR TOO ALEXANDER Primary Care Unavailable REQUEST, NONE LISTED Admitting Unavaila ble REQUEST, NONE LISTED Attending Unavaila ble REQUEST, NONE LISTED Consulting Unavaila ble Too Alexander Unavailable MD Dylon Otoole Attending Provider DO Too Alexander Primary Care Provider Dylon Otooel Attending Unavailable Dylon Otoole Admitting Unavailable Too Alexander Primary Care Unavailable Too Alexander Primary Care Unavailable Too Alexander Primary Care Unavailable Allergies Allergy Classification Reported Allergen(s) Allergy Type Date of Onset Reaction(s) Facility (1 source) Sulfonamides (Antibiotic) Drug allergy (disorder) 4 [facility] Repository (2 sources) Sulf-10 Drug allergy Unknown [facility] Other (2 sources) Substance with sulfonamide structure and antibacterial mechanism of action (substance) Drug allergy 4 Unknown [facility] Other (1 source) Sulfonamides (Antibiotic) Drug allergy (disorder) 4 [facility] Repository Medications Current Medications Medication Drug Class(es) Dates Sig (Normalized) Sig (Original) Sunflower (No Known Home Meds) (3 sources) Start: 05-10-2024 Sunflower (No Known Home Meds) Active May 10, 2024 12:00am Completed/Discontinued Medications Medication Drug Class(es) Dates Sig (Normalized) Sig (Original) acetaminophen 325 mg / HYDROcodone bitartrate 5 mg oral tablet (5 sources) Opioid Agonist Start: 01-22-2018 End: 09-25-2021 take 1 tablet by mouth every four hours Hydrocodone-Acetami nophen (Transfer) 5-325 mg tablet Discontinued 1 TAB PO Q4H January 22, 2018 September 25, 2021 12:31pm acetaminophen 325 mg / oxyCODONE hydrochloride 5 mg oral tablet (7 sources) Opioid Agonist Start: 10-08-2021 End: 12-24-2023 take 1-2 tablets by mouth every six hours as needed for pain Oxycodone-Acetamino phen (Percocet) 5-325 mg tablet Discontinued 2 TAB PO Q6H October 08, 2021 December 24, 2023 12:48pm 1-2 tabs po q 6 hours prn pain Start: 04-13-2018 take 1 tablet by [facility] every four to six hours as needed oxyCODONE-Acetaminophen 5-325 MG 1 table t as needed Orally every 4-6 hours Mar, Active atorvastatin 20 mg oral tablet (7 sources) HMG-CoA Reductase Inhibitor Start: 12-24-2023 End: 02-17-2024 take 20 mg by mouth once daily Atorvastatin Discontinued 20 MG PO Daily December 24, 2023 1:00am February 17, 2024 3:27pm take 1 tablet by [facility] once daily in the evening Atorvastatin Calcium 20 MG TAKE 1 TABLET BY MOUTH ONCE DAILY IN THE EVENING Active cyclobenzaprine hydrochloride 10 mg oral tablet (4 sources) Muscle Relaxant Start: 02-17-2024 End: 05-10-2024 take 10 mg by mouth twice daily Cyclobenzaprine Discontinued 10 MG PO Twice daily February 17, 2024 12:00am May 10, 2024 11:41am gabapentin 300 mg oral capsule (7 sources) Anti-epileptic Agent Start: 12-02-2017 End: 09-25-2021 Gabapentin Discontinued 1 CAP PO As Directed January 19, 2018 12:00am September 25, 2021 12:31pm meloxicam 15 mg oral tablet (9 sources) Nonsteroidal Anti-inflammatory Drug Start: 01-01-2024 End: 05-10-2024 take 15 mg by mouth once daily Meloxicam Discontinued 15 MG PO Daily February 17, 2024 12:00am May 10, 2024 11:41am Mnoyjgng-Rot-Xffth-Vi t K-Lycop (Men's 50 Plus Multivitamin) 400-20-370 mcg Tablet (5 sources) Start: 09-25-2021 End: 12-24-2023 take 50-400 tablets by mouth once daily Hvvpzqps-Ymt-Oktif-V it K-Lycop (Men's 50 Plus Multivitamin) 400-20-370 mcg Tablet Discontinued 1 TAB PO Daily September 25, 2021 1:00am December 24, 2023 11:26am naproxen sodium 220 mg oral tablet (5 sources) Nonsteroidal Anti-inflammatory Drug Start: 09-25-2021 End: 12-24-2023 Naproxen Sodium (Aleve) 220 mg Tablet Discontinued 220 MG PO As Directed September 25, 2021 1:00am December 24, 2023 11:26am Instructed to stop 7 days prior to surgery predniSONE 20 mg oral tablet (5 sources) Start: 12-24-2023 End: 02-17-2024 Prednisone Discontinued 20 MG PO As Directed December 24, 2023 1:00am February 17, 2024 3:27pm 1 tab tid w/ food x 3 days, then bid w/ food x 3 days, then qd w/ food x 3 days tiZANidine 4 mg oral tablet (10 sources) Central alpha-2 Adrenergic Agonist Start: 12-24-2023 End: 02-17-2024 take 4 mg by mouth once daily at bedtime Tizanidine Discontinued 4 MG PO Daily at bedtime January 01, 2024 8:18pm February 17, 2024 3:27pm 1/2 - 1 PO q HS traMADol hydrochloride 50 mg oral tablet (7 sources) Opioid Agonist Start: 01-19-2018 End: 01-22-2018 Tramadol Discontinued 1 CAP PO As Directed January 19, 2018 12:00am January 22, 2018 1:12pm Start: 12-02-2017 take 1-2 tablets by mouth every four to six hours as needed traMADol HCl 50 MG 1-2 tablet as needed Orally every 4-6 hrs Nov, Not-Taking/PRN Triamcinolone (2 sources) Corticosteroid Start: 08-28-2016 KENALOG - 10 m g Aug, 60 mg Problems Problem Classification Problem Date Documented Date Episodic/Chronic Abdominal hernia (5 sources) Incisional hernia; Translations: [Incisional hernia without obstruction or gangrene] 10-01-2023 Episodic Disorders of lipid metabolism (6 sources) Mixed hyperlipidemia; Translations: [Mixed hyperlipidemia] Chronic Osteoarthritis (7 sources) Osteoarthritis of joint of right shoulder region; Translations: [Primary osteoarthritis, right shoulder] 05-10-2024 Chronic Other acquired deformities (5 sources) Other secondary scoliosis, lumbar region; Translations: [Scoliosis of lumbar region due to degenerative disease of spine in adult] 01-05-2024 Chronic Other acquired deformities (4 sources) Lumbar spondylolisthesis; Translations: [Spondylolisthesis, lumbar region] 01-05-2024 Episodic Other acquired deformities (1 source) Spondylolisthesis, lumbar region; Translations: [Acquired spondylolisthesis] 01-05-2024 Episodic Other liver diseases (8 sources) Fatty (change of) liver, not elsewhere [...] tunnel syndrome, left upper limb] Chronic Other nervous system disorders (4 sources) Chronic pain; Translations: [Other chronic pain] 02-17-2024 Chronic Other nervous system disorders (3 sources) Other chronic pain; Translations: [Other chronic pain] 02-17-2024 Chronic Other non-traumatic joint disorders (8 sources) Pain in right shoulder; Translations: [Right shoulder pain] Onset: 05-10-2024 05-10-2024 Episodic Other nutritional; endocrine; and metabolic disorders (2 [...] mass index (BMI) 35.0-35.9, adult Chronic Other nutritional; endocrine; and metabolic disorders (5 sources) Obesity caused by energy imbalance; Translations: [Morbid (severe) obesity due to excess calories] 12-24-2023 Chronic Other nutritional; endocrine; and metabolic disorders (5 sources) Obesity; Translations: [Obesity, unspecified] 12-24-2023 Chronic Other nutritional; endocrine; and metabolic disorders (4 sources) Obesity, unspecified; Translations: [Obesity, unspecified] 12-24-2023 Chronic Other screening for suspected conditions (not mental disorders or infectious disease) (1 source) Encounter for screening for malignant neoplasm of prostate Episodic Residual codes; unclassified (2 sources) Postprocedural state finding; Translations: [Other specified postprocedural states] Episodic Spondylosis; intervertebral disc disorders; other back problems (13 sources) Lumbar spondylosis; Translations: [Spondylosis without myelopathy or radiculopathy, lumbar region] 12-24-2023 Chronic Spondylosis; intervertebral disc disorders; other back problems (15 sources) Low back pain; Translations: [Chronic lumbosacral pain] 12-24-2023 Episodic Substance-related disorders (8 sources) Tobacco dependence in remission; Translations: [Nicotine dependence, cigarettes, in remission] Chronic Results Test Name Value Interpretation Reference Range Facility Consent Formson 07-30-2024 Consent Forms [id number] .00OT[address] Normal [facility] CMP Standardon 07-15-2024 eGFR Non AA >[address] [facility] Comment on above: Performed By: #### 2 802254, [id number], 9597005, 1017894, 4701650, 1742464, [id number] #### [facility] (DEFAULT) [address] [place] [address] eGFR AA >[address] [facility] Comment on above: Performed By: #### 2 449945, [id number], 4143495, 9229817, 5350198, 9402235, 3643603799 #### [facility] (DEFAULT) [address] [place] [address] 57863 Albumin [Mass/Vol] 4.1 g/dL Normal 3.5-5.0 [facility] Comment on above: Performed By: #### 2 304614, [id number], 1435784, 8250601, 4954187, 6016069, [id number] #### [facility] (DEFAULT) [address] [place] [address] 57715 Alk Phos 81 IU/L Normal 32-91 [facility] Comment on above: Performed By: #### 2 891164, [id number], 5969362, 5858800, 0079358, 5227681, 7449674460 #### [facility] (DEFAULT) [address] [place] [address] ALT [Catalytic activity/Vol] 26.0 U/L Normal 17.0-63.0 [facility] Comment on above: Performed By: #### 2 202971, [id number], 0641325, 6847523, 6800890, 3950613, 7942532509 #### [facility] (DEFAULT) [address] [place] [address] AST [Catalytic activity/Vol] 26 U/L Normal 15-41 [facility] Comment on above: Performed By: #### 2 332225, [id number], 8263455, 1603055, 7827663, 6379471, 6132214030 #### [facility] (DEFAULT) [address] [place] [address] 08160 Bili Total 1.6 mg/dL High 0.3-1.2 [facility] Comment on above: Performed By: #### 2 210111, 1641351379, 6176733, 1918510, 4771647, 1193856, 8945604462 #### [facility] (DEFAULT) [address] [place] [address] 33134 Calcium [Mass/Vol] 8.6 mg/dL Low 8.9-10.3 [facility] Comment on above: Performed By: #### 2 117898, 5566760072, 3170738, 9531693, 3279310, 6661878, 9675746115 #### [facility] (DEFAULT) [address] [place] [address] 95245 Chloride [Moles/Vol] 103 mmol/L Normal 101-111 [facility] Comment on above: Performed By: #### 2 924792, 8206401403, 6921247, 8858321, 1090535, 2195950, 3354163391 #### [facility] (DEFAULT) [address] [place] [address] 53176 CO2 [Moles/Vol] 25 mmol/L Normal 21-32 [facility] Comment on above: Performed By: #### 2 817405, 3822396933, 1547030, 9477995, 8994064, 6919276, 6853461214 #### [facility] (DEFAULT) [address] [place] [address] 43561 Creatinine [Mass/Vol] 0.75 mg/dL Low 0.90-1.30 [facility] Comment on above: Performed By: #### 2 102385, 0162417623, 4526785, 0243857, 4791349, 2640623, 2172147360 #### [facility] (DEFAULT) [address] [place] [address] 13624 Glucose [Mass/Vol] 83.0 mg/dL Normal 74.0-118.0 [facility] Comment on above: Performed By: #### 2 037372, 9976719126, 3265501, 6329781, 6260821, 4460566, 5449430707 #### [facility] (DEFAULT) [address] [place] [address] 52304 Potassium [Moles/Vol] 3.6 mmol/L Normal 3.6-5.1 [facility] Comment on above: Performed By: #### 2 006706, 9337268762, 8068011, 1671089, 5305440, 8730502, 3096637341 #### [facility] (DEFAULT) [address] [place] [address] 74098 Protein [Mass/Vol] 6.7 g/dL Normal 6.5-8.1 [facility] Comment on above: Performed By: #### 2 522740, 6157644672, 7144495, 0964806, 5012651, 4704106, 0292251321 #### [facility] (DEFAULT) [address] [place] [address] 22029 Sodium [Moles/Vol] 135.0 mmol/L Low 136.0-144.0 [facility] Comment on above: Performed By: #### 2 055871, 6022102374, 6025009, 6178524, 0918578, 5293308, 1812206515 #### [facility] (DEFAULT) [address] [place] [address] Urea nitrogen [Mass/Vol] 11 mg/dL Normal 8-26 [facility] Comment on above: Performed By: #### 2 303537, 9236667440, 2238727, 6088522, 8135337, 3888971, 1167609821 #### [facility] (DEFAULT) [address] [place] [address] Albumin/Globulin [Mass ratio] 1.5 {ratio} Normal 1.4-2.6 [facility] Comment on above: Performed By: #### 2 394295, 7427433856, 3307475, 3586954, 6145273, 7079579, 3267156450 #### [facility] (DEFAULT) [address] [place] [address] Anion gap [Moles/Vol] 10.6 mmol/L Normal 5.0-19.0 [facility] Comment on above: Performed By: #### 2 234542, 2388199110, 4694825, 9069421, 4781570, 9212104, 0205287776 #### [facility] (DEFAULT) [address] [place] [address] 87718 Globulin (S) [Mass/Vol] 2.6 g/dL Normal 1.5-4.3 [facility] Comment on above: Performed By: #### 2 909037, 3237572657, 1419142, 1230863, 9684636, 8923726, 5999582536 #### [facility] (DEFAULT) [address] [place] [address] 27089 Osmolality 269 mOsm/L Invalid Interpretation Code [facility] Comment on above: Performed By: #### 2 070170, 5081925263, 9529303, 5011314, 3635518, 9436294, 5542811552 #### [facility] (DEFAULT) [address] [place] [address] Urea nitrogen/Creatinine [Mass ratio] 14.6 mg/mg Normal 4.6-16.2 [facility] Comment on above: Performed By: #### 2 067022, 4707725886, 3790455, 4146611, 6858967, 9221126, 5904802320 #### [facility] (DEFAULT) [address] [place] [address] 92250 GGTon 07-15-2024 Gamma glutamyl transferase [Catalytic activity/Vol] 36.0 U/L Normal 7.0-50.0 [facility] Comment on above: Performed By: #### 2 124496, 3363920978, 2473636, 5495756, 3614884, 9946844, 2729880757 #### [facility] (DEFAULT) [address] [place] [address] 97788 Iron Levelon 07-15-2024 Iron [Mass/Vol] 123.0 ug/dL Normal 45.0-182.0 [facility] Comment on above: Performed By: #### 2 414681, 2668200851, 8653551, 1200340, 1731443, 0693049, 0730523802 #### [facility] (DEFAULT) [address] [place] [address] 11674 LDHon 07-15-2024 LDH 219.0 IU/L High 98.0-192.0 [facility] Comment on above: Performed By: #### 2 589538, 6500991862, 2489540, 8397994, 0237354, 6424793, 3473434487 #### [facility] (DEFAULT) [address] [place] [address] 08286 Lipid Panel Standardon 07-15 Cholesterol [Mass/Vol] 267.0 mg/dL High 66.0-200.0 [facility] Comment on above: Performed By: #### 2 230727, 3979327339, 9790658, 3505538, 6297902, 9970583, 9309752488 #### [facility] (DEFAULT) [address] [place] [address] 54197 Cholesterol in HDL [Mass/Vol] 55 mg/dL Normal 40-71 [facility] Comment on above: Performed By: #### 2 824726, 0724979932, 7424926, 4078503, 1967040, 7577496, 9468007429 #### [facility] (DEFAULT) [address] [place] [address] 44411 Triglyceride [Mass/Vol] 199.0 mg/dL High 0.0-150.0 [facility] Comment on above: Performed By: #### 2 825499, 9687805068, 7650076, 9864974, 5006395, 4592557, 3335166947 #### [facility] (DEFAULT) [address] [place] [address] 87576 Cholesterol in LDL [Mass/Vol] 172 mg/dL High 1-100 [facility] Comment on above: Performed By: #### 2 809089, 4190624075, 4330505, 5177286, 7717174, 0808471, 5118569954 #### [facility] (DEFAULT) [address] [place] [address] 90139 Cholesterol.total/Ch olesterol in HDL [Mass ratio] 4.8 {ratio} High 0.0-4.5 [facility] Comment on above: Performed By: #### 2 622523, 9500283468, 3832986, 7666853, 8882162, 5928871, 4728846095 #### [facility] (DEFAULT) [address] [place] [address] 73828 VLDL. 40 mg/dL Normal 5-40 [facility] Comment on above: Performed By: #### 2 477749, 7876658101, 5275520, 9215751, 0823373, 2694354, 6609476372 #### [facility] (DEFAULT) [address] [place] [address] 43111 PSA Screenon 07-15-2024 PSA Screen 1.16 ng/mL Normal 0.00-4.00 [facility] Comment on above: Result Comment: [employer] Clinical System (Chemiluminescence) Values obtained with different assay methods or kits cannot be used interchangeably. Results cannot be interpreted as absolute evidence of the presence or absence of malignant disease. Performed By: #### 7 197045 #### [facility] (DEFAULT) [address] [place] [address] 29787 Phoson 07-15-2024 Phosphate [Mass/Vol] 2.5 mg/dL Normal 2.5-4.6 [facility] Comment on above: Performed By: #### 2 615051, 9245592512, 5810796, 1810611, 3968148, 4897922, 1111047304 #### [facility] (DEFAULT) [address] [place] [address] 68802 Uric Acidon 07-15-2024 Urate [Mass/Vol] 6.7 mg/dL Normal 4.8-8.7 [facility] Comment on above: Performed By: #### 2 817538, 2315282129, 6066978, 9796349, 8027915, 0913973, 6465099002 #### [facility] (DEFAULT) [address] [place] [address] 89477 XR shoulder RT min 2V*on XR shoulder RT min 2V* [facility] [address] [place] [address] XRay Report Signed Patient: Dylon Jefferson MR#: [id number] 221 : 1960 Acct:[id number] Age/Sex: 64 / M ADM Date: 05/10/24 Loc: [facility] Room: Type: [facility] Attending Dr: Dylon Otoole MD Copies to: Dylon Otoole MD Ordering Provider: Dylon Otoole MD Date of Service: 05/10/24 XR/XR shoulder RT min 2V*: M25.511 - Pain in right shoulder 5 views right shoulder plain film HISTORY: Anterior right shoulder pain COMPARISON: None ACUTE FINDINGS: None DEGENERATIVE CHANGE: Acromioclavicular and glenohumeral spurring. SOFT TISSUE FINDINGS: Unremarkable JOINT EFFUSION: None POSTOP CHANGES: None BONY MINERALIZATION: Adequate XR/XR shoulder RT min 2V* IMPRESSION: Mild to moderate degenerative changes. Impression dictated by: Juan Romero M.D.05/10/2024 3:34 PM Dictation Location: [place] [address] Transcribed By: [facility] 05/10/241533 Dictated By: Juan Romero DO 05/10/241533 Signed By: 05/10/241533 Normal [facility] Consent Formson 09-23-2023 Consent Forms [id number] [facility] CMP Standardon 08-14-2023 eGFR Non AA >[address] [facility] Comment on above: Performed By: #### 2 890954, 5581654, 2009687, 5119992, 1220101909, 7835685, 2736860706, 4264347 #### [facility] (DEFAULT) [address] [place] [address] 12137 eGFR AA >[address] [facility] Comment on above: Performed By: #### 2 055722, 1531269, 1909409, 6820239, 1467364644, 5332793, 5812615882, 2888463 #### [facility] (DEFAULT) [address] [place] [address] 15765 Albumin [Mass/Vol] 4.0 g/dL Normal 3.5-5.0 [facility] Comment on above: Performed By: #### 2 924297, 1411960, 1767060, 0244576, 4782398115, 0851599, 1548416913, 0138352 #### [facility] (DEFAULT) [address] [place] [address] 16229 Alk Phos 82 IU/L Normal 32-91 [facility] Comment on above: Performed By: #### 2 999310, 1285495, 5086436, 4485228, 2315500251, 6790165, 6949670924, 4015533 #### [facility] (DEFAULT) [address] [place] [address] 55805 ALT [Catalytic activity/Vol] 28.0 U/L Normal 17.0-63.0 [facility] Comment on above: Performed By: #### 2 748583, 0690520, 9472705, 0367987, 3035718826, 9535865, 0271042802, 2131551 #### [facility] (DEFAULT) [address] [place] [address] 32504 AST [Catalytic activity/Vol] 27 U/L Normal 15-41 [facility] Comment on above: Performed By: #### 2 956901, 9689101, 4950802, 3645428, 3623465208, 1260305, 2987497941, 3263588 #### [facility] (DEFAULT) [address] [place] [address] 42505 Bili Total 1.0 mg/dL Normal 0.3-1.2 [facility] Comment on above: Performed By: #### 2 021258, 8638242, 6480175, 0333021, 5686321233, 4284284, 3828123550, 6459546 #### [facility] (DEFAULT) [address] [place] [address] 12648 Calcium [Mass/Vol] 9.0 mg/dL Normal 8.9-10.3 [facility] Comment on above: Performed By: #### 2 761247, 8908187, 1793071, 3233052, 6020298646, 2190200, 5266725731, 4836025 #### [facility] (DEFAULT) [address] [place] [address] 24897 Chloride [Moles/Vol] 108 mmol/L Normal 101-111 [facility] Comment on above: Performed By: #### 2 396548, 9903567, 6564647, 1188357, 1339578844, 8122252, 1357515706, 1401385 #### [facility] (DEFAULT) [address] [place] [address] 56850 CO2 [Moles/Vol] 26 mmol/L Normal 21-32 [facility] Comment on above: Performed By: #### 2 175979, 6705205, 0401258, 3319174, 7900529349, 9391874, 6735325027, 5563432 #### [facility] (DEFAULT) [address] [place] [address] 77154 Creatinine [Mass/Vol] 0.74 mg/dL Low 0.90-1.30 [facility] Comment on above: Performed By: #### 2 779584, 0854037, 9504678, 6947320, 3835268366, 6230910, 5302593678, 3766799 #### [facility] (DEFAULT) [address] [place] [address] 41391 Glucose [Mass/Vol] 98.0 mg/dL Normal 74.0-118.0 [facility] Comment on above: Performed By: #### 2 509608, 2773454, 5931199, 2809113, 0398153783, 6735974, 9761213920, 4447802 #### [facility] (DEFAULT) [address] [place] [address] 34178 Potassium [Moles/Vol] 3.9 mmol/L Normal 3.6-5.1 [facility] Comment on above: Performed By: #### 2 219030, 7099451, 8245136, 5632128, 2617851508, 3609998, 3693619589, 3974448 #### [facility] (DEFAULT) [address] [place] [address] 74460 Protein [Mass/Vol] 6.6 g/dL Normal 6.5-8.1 [facility] Comment on above: Performed By: #### 2 629835, 2178689, 5947989, 8094726, 8863208376, 4491852, 0899833728, 2096526 #### [facility] (DEFAULT) [address] [place] [address] 75141 Sodium [Moles/Vol] 140.0 mmol/L Normal 136.0-144.0 [facility] Comment on above: Performed By: #### 2 666275, 5831552, 5787960, 4625140, 0469251360, 0342010, 1012270693, 3233146 #### [facility] (DEFAULT) [address] [place] [address] 40486 Urea nitrogen [Mass/Vol] 16 mg/dL Normal 8-26 [facility] Comment on above: Performed By: #### 2 975895, 0343427, 2512704, 9566538, 8600715519, 4928954, 6808988646, 0214501 #### [facility] (DEFAULT) [address] [place] [address] 63966 Albumin/Globulin [Mass ratio] 1.5 {ratio} Normal 1.4-2.6 [facility] Comment on above: Performed By: #### 2 773160, 5870210, 8970760, 5783788, 1184589170, 2794385, 2141397222, 9215806 #### [facility] (DEFAULT) [address] [place] [address] 19739 Anion gap [Moles/Vol] 9.9 mmol/L Normal 5.0-19.0 [facility] Comment on above: Performed By: #### 2 113549, 2103015, 3663457, 0373165, 8259108842, 2411485, 8027708709, 5213751 #### [facility] (DEFAULT) [address] [place] [address] 21237 Globulin (S) [Mass/Vol] 2.6 g/dL Normal 1.5-4.3 [facility] Comment on above: Performed By: #### 2 010542, 0513293, 9258681, 1374795, 4770636930, 5274729, 7822190370, 4949781 #### [facility] (DEFAULT) [address] [place] [address] 05740 Osmolality 280 mOsm/L Invalid Interpretation Code [facility] Comment on above: Performed By: #### 2 928969, 6999898, 0836491, 4178568, 4761202365, 5685328, 6536870242, 0312882 #### [facility] (DEFAULT) [address] [place] [address] 91219 Urea nitrogen/Creatinine [Mass ratio] 21.6 mg/mg High 4.6-16.2 [facility] Comment on above: Performed By: #### 2 585583, 4678132, 4181223, 5601052, 2940159110, 4087148, 9202374873, 6347126 #### [facility] (DEFAULT) [address] [place] [address] 12894 GGTon 08-14-2023 Gamma glutamyl transferase [Catalytic activity/Vol] 27.0 U/L Normal 7.0-50.0 [facility] Comment on above: Performed By: #### 2 [id number], [id number], 9750926, 9483138, 2929607, 5003039, [id number] #### [facility] (DEFAULT) [address] [place] [address] 24771 Iron Levelon 08-14-2023 Iron [Mass/Vol] 103.0 ug/dL Normal 45.0-182.0 [facility] Comment on above: Performed By: #### 2 [id number], [id number], 5893433, 2919781, 6167091, 6831974, [id number] #### [facility] (DEFAULT) [address] [place] [address] 68883 LDHon 08-14-2023 LDH 181.0 IU/L Normal 98.0-192.0 [facility] Comment on above: Performed By: #### 2 400482, [id number], 2863003, 4654911, 8507005, 8233825, [id number] #### [facility] (DEFAULT) [address] [place] [address] 77490 Lipid Panel Standardon 08-14 Cholesterol [Mass/Vol] 254.0 mg/dL High 66.0-200.0 [facility] Comment on above: Performed By: #### 2 127861, [id number], 2139261, 5657496, 5804416, 4863305, [id number] #### [facility] (DEFAULT) [address] [place] [address] 43313 Cholesterol in HDL [Mass/Vol] 56 mg/dL Normal 40-71 [facility] Comment on above: Performed By: #### 2 204389, [id number], 8183203, 0054784, 5584788, 9217664, [id number] #### [facility] (DEFAULT) [address] [place] [address] 73055 Triglyceride [Mass/Vol] 132.0 mg/dL Normal 0.0-150.0 [facility] Comment on above: Performed By: #### 2 277949, [id number], 1711190, 1973387, 1123363, 9607409, [id number] #### [facility] (DEFAULT) [address] [place] [address] 80063 Cholesterol in LDL [Mass/Vol] 171 mg/dL High 1-100 [facility] Comment on above: Performed By: #### 2 124523, [id number], 1813738, 4644814, 3813218, 8858814, [id number] #### [facility] (DEFAULT) [address] [place] [address] 45790 Cholesterol.total/Ch olesterol in HDL [Mass ratio] 4.4 {ratio} Normal 0.0-4.5 [facility] Comment on above: Performed By: #### 2 888008, [id number], 6668229, 8792777, 1844009, 9719862, [id number] #### [facility] (DEFAULT) [address] [place] [address] 27269 VLDL. 26 mg/dL Normal 5-40 [facility] Comment on above: Performed By: #### 2 897769, [id number], 9259848, 5829767, 0212784, 6088708, [id number] #### [facility] (DEFAULT) [address] [place] [address] 98371 PSA Screenon 08-14-2023 PSA Screen 0.85 ng/mL Normal 0.00-4.00 [facility] Comment on above: Result Comment: [employer] System (Chemiluminescence) Values obtained with different assay methods or kits cannot be used interchangeably. Results cannot be interpreted as absolute evidence of the presence or absence of malignant disease. Performed By: #### 2 013347, 0949145, 0316501, 1198428, [id number], 0049313, [id number], 3019373 #### [facility] (DEFAULT) [address] [place] [address] Phoson 08-14-2023 Phosphate [Mass/Vol] 2.6 mg/dL Normal 2.5-4.6 [facility] Comment on above: Performed By: #### 2 337527, [id number], 8337623, 4654575, 5515786, 4935018, [id number] #### [facility] (DEFAULT) [address] [place] [address] 22457 Uric Acidon 08-14-2023 Urate [Mass/Vol] 7.2 mg/dL Normal 4.8-8.7 [facility] Comment on above: Performed By: #### 2 643003, [id number], 8046140, 2825706, 8643547, 3361658, [id number] #### [facility] (DEFAULT) [address] [place] [address] 78030 RUBÉN - LIPID PROFILEon 2022 CHOL-HDL RATIO NORM SEE BELOW Normal [facility] Comment on above: Result Comment: 3.3 - 4.4 LOW RISK 4.4 - 7.1 AVERAGE RISK 7.1 - 11.0 MODERATE RISK >11.0 HIGH RISK Performed By: #### D ABBY ABDULLAHI #### [facility] [address] [place] [address] Dr. Neptali Wade Cholesterol [Mass/Vol] 260 mg/dL Critically high <=200 [facility] Comment on above: Performed By: #### MAINOR BRANCHL #### [facility] [address] [place] [address] Dr. Neptali Wade Cholesterol in HDL [Mass/Vol] 38 mg/dL Critically low 40-60 [facility] Comment on above: Performed By: #### D ABBY ABDULLAHI #### [facility] [address] [place] [address] Dr. Neptali Wade Cholesterol.total/Ch olesterol in HDL [Mass ratio] 6.8 {ratio} Normal [facility] Comment on above: Performed By: #### MAINOR BRANCHL #### [facility] [address] [address] [address] Neptali Wade HDL NORMAL > or = 60 mg/dl - LO W CARDIOVASCULAR RISK <40 mg/dl - HIGH CARDIOVASCULAR RISK Normal [facility] Comment on above: Performed By: #### D KAYLEN, DLDL #### [facility] [address] [address] [address] Neptali Wade LDL CALC NORMAL SEE BELOW Normal [facility] Comment on above: Result Comment: <100 mg/dl OPTIMAL 100 - 129 mg/dl NEAR OR ABOVE OPTIMAL 130 - 159 mg/dl BORDERLINE HIGH 160 - 189 mg/dl HIGH >190 mg/dl VERY HIGH Performed By: #### D KAYLEN DLDL #### [facility] [address] [address] [address] Neptali Wade Triglyceride [Mass/Vol] 476 mg/dL Critically high <=150 [facility] Comment on above: Performed By: #### Carmita ABDULLAHI DLDL #### [facility] [address] [address] [address] Neptali Wade VLDL CALC 95.2 mg/dL Normal [facility] Comment on above: Performed By: #### Carmita ABDULLAHI DLDL #### [facility] [address] [address] [address] Neptali Wade DIRECT LDLon 10-22-2022 Cholesterol in LDL [Mass/Vol] 116 mg/dL Normal [facility] Comment on above: Performed By: #### Carmita ABDULLAHI DLDL #### [facility] [address] [address] [address] Neptali Wade DLDL NORMAL SEE BELOW Normal [facility] Comment on above: Result Comment: <100 mg/dl OPTIMAL 100 - 129 mg/dl NEAR OR ABOVE OPTIMAL 130 - 159 mg/dl BORDERLINE HIGH 160 - 189 mg/dl HIGH >190 mg/dl VERY HIGH Performed By: #### D ATLNABEEL, DLDL #### [facility] [address] [address] [address] Neptali Wade GLYCOHEMOGLOBIN A1Con 2022 ADA RECOMMENDATION SEE BELOW Normal [facility] Comment on above: Result Comment: ADA RECOMMENDED LIMIT 4.0 - 6.0 ADA THERAPEUTIC TARGET < 7.0 ACTION SUGGESTED > 7.0 Performed By: #### D ATA1C #### [facility] [address] [place] [address] Dr. Neptali Wade Glucose [Mass/Vol] 100 mg/dL Normal [facility] Comment on above: Performed By: #### D ATA1C #### [facility] [address] [address] [address] Neptali Wade HbA1c (Bld) [Mass fraction] 5.1 % Normal 4.5-6.2 [facility] Comment on above: Performed By: #### D ATA1C #### [facility] [address] [place] [address] Dr. Neptali Wade Vital Signs Date Time Vital Sign Value Performing Clinician Facility 01-05-2024 10:00-0400 Body height 167.64 cm [facility] 01-05-2024 10:00-0400 Body mass index (BMI) [Ratio] 35.5 kg/m2 [facility] 01-05-2024 10:00-0400 Body weight 99.9 kg [facility] 01-05-2024 10:00-0400 Diastolic blood pressure 95 mm[Hg] [facility] 01-05-2024 10:00-0400 Heart rate 71 /min [facility] 01-05-2024 10:00-0400 Respiratory rate 16 /min [facility] 01-05-2024 10:00-0400 Systolic blood pressure 157 mm[Hg] [facility] 12-24-2023 11:25-0500 Body height 167.64 cm [facility] 12-24-2023 11:25-0500 Body mass index (BMI) [Ratio] 35.5 kg/m2 [facility] 12-24-2023 11:25-0500 Body weight 99.9 kg [facility] 12-24-2023 11:25-0500 Diastolic blood pressure 93 mm[Hg] [facility] 12-24-2023 11:25-0500 Heart rate 58 /min [facility] 12-24-2023 11:25-0500 Respiratory rate 20 /min [facility] 12-24-2023 11:25-0500 Systolic blood pressure 143 mm[Hg] [facility] 08-18-2023 14:00-0400 Body height 167.64 cm [facility] Other [employer] [facility] [employer] Other 08-18-2023 14:00-0400 Body mass index (BMI) [Ratio] 35.09 kg/m2 [facility] Other [facility] Other 08-18-2023 14:00-0400 Body weight 98.61 kg [facility] Other [facility] Other 08-18-2023 14:00-0400 Diastolic blood pressure 82 mm[Hg] [facility] Other [facility] Other 08-18-2023 14:00-0400 Respiratory rate 16 /min [facility] Other [facility] Other 08-18-2023 14:00-0400 Systolic blood pressure 123 mm[Hg] [facility] Other [facility] Other Encounters Encounter Date Encounter Type Care Provider Facility Start: 07-15-2024 End: 07-15-2024 ambulatory Too Ball Facility:[facility] Start: 06-14-2024 End: 06-14-2024 ambulatory DO Too Ball Work Phone: [facility] Work Phone: Start: 06-14-2024 End: 06-14-2024 Patient encounter procedure DO Too Ball Work Phone: [facility] Work Phone: Start: 05-10-2024 End: 05-10-2024 ambulatory DO Too Ball Work Phone: [facility] Work Phone: Start: 05-10-2024 End: 05-10-2024 Patient encounter procedure DO Too Wallace Work Phone: [facility] Work Phone: Start: 02-17-2024 End: 02-17-2024 ambulatory [facility] Work Phone: Start: 02-17-2024 End: 02-17-2024 Patient encounter procedure [facility] Phys[facility] Work Phone: Start: 01-05-2024 End: 01-05-2024 ambulatory [facility] Work Phone: Start: 01-05-2024 End: 01-05-2024 Patient encounter procedure [facility] Work Phone: Start: 12-24-2023 End: 12-24-2023 Patient encounter procedure [facility] Physician [facility] Work Phone: Start: 11-10-2023 End: 11-10-2023 ambulatory Too Alexander Other [facility] Other Start: 11-10-2023 Telephone encounter Too Alexander [facility] Start: 08-19-2023 End: 08-19-2023 ambulatory Too Alexander Facility:[facility] Start: 08-18-2023 End: 08-18-2023 ambulatory Too Alexander Other [facility] Other Start: 08-18-2023 Encounter for genera l adult medical examination without abnormal findings Too Alexander [facility] Start: 08-18-2023 Periodic preventive med est patient 40-64yrs Too Alexander [facility] Start: 10-22-[address] TOO ALEXANDER Facili ty:H1 Procedures Date Procedure Procedure Detail Performing Clinician Start: 05-10-2024 Plain X-ray of right shoulder DO Too Alexander Work Phone: Plan of Treatment Date Care Activity Detail Author Start: 05-10-2024 Plain X-ray of right shoulder XR shoulder RT min 2V* [facility] Start: 05-10-2024 XR Shoulder - right Views [facility] MR Lumbar spine WO contrast [facility] Patient Education Low back pain in adults [facility] Work Phone: Immunizations Immunization Date Immunization Notes Care Provider Nubia chamorro 12-29-2020 COVID-19 Ad26.COV2.S (Peter) [facility] 08-05-2019 influenza virus vaccine, split virus (incl. purified surface antigen) Too Alexander Other [facility] Other 08-05-2019 influenza virus vaccine, unspecified formulation [facility] 04-01-2017 diphtheria, tetanus toxoids and acellular pertussis vaccine Too Alexander Other [facility] 05-09-2016 diphtheria, tetanus toxoids and acellular pertussis vaccine, unspecified formulation Too Alexander Other [facility] Payers Date Payer Category Payer Private Health Insurance [id number] 2024 Self-pay [id number] 1959 Self-pay [id number] Unknown [id number] Unknown [employer] BC/BS [id number] Unknown [id number] Social History Date Type Detail Facility Unknown if ever smoked [facility] Other Sex Assigned At Sex Assigned At Bir th [facility] Other Start: 12-24-2023 Tobacco smoking status NHIS Ex-smoker (finding) [facility] Start: 1960 Sex Assigned At Male F [facility] Medical Equipment Procedure Code Equipment Code Equipment Origin al Text Equipment Identifier Dates Repair, hernia, inguinal, laparoscopic Abdominal hernia surgical mesh, composite-polymer ([id number] FDA Start: 10-08-2021 Evaluation note 08-18-2023 Note Date & Type [...] exercise for 30 minutes, 3-5 times weekly. [facility] Other Evaluation note Note Date & Type Note Facility Evaluation note No Information [employer] Other Evaluation note Note Date & Type Note Facility Evaluation note Diagnosis Onset Date Lumbar spondylosis acute Obesity acute Low back pain noneactive Lumbar spondylosis acute Obesity acute Low back pain noneactive [facility] Work Phone: Evaluation note Note Date & Type Note Facility Evaluation note Diagnosis Onset Date Obesity acute Low back pain noneactive Obesity acute Scoliosis of lumbar region d ue to degenerative disease of spine in adult a cute Spondylolisthesis, lumbar region acute Low back pain noneactive Chronic pain acute Degenerative disc disease, lumbar acute Other low back pain acute [facility] Work Phone: Evaluation note Note Date & Type Note Facility Evaluation note Diagnosis Onset Date Chronic pain acute Other low back pain acute Other spondylosis with radic ulopathy, lumbar region acute DJD of right shoulder acute Right shoulder pain acute [facility] Work Phone: Evaluation note Note Date & Type Note Facility Evaluation note Diagnosis Onset Date DJD of right shoulder acute Right shoulder pain acute DJD of right shoulder acute Right shoulder pain acute [facility] Work Phone: History general Narrative - Reported Note Date [...] carpal tunnel release Hospitalization History see above [facility] Other Summary Purpose Family History No Family History Records Found Relationship Condition Age at Onset Recorded Date/T meche father Malignant neoplasm of lung Unknown Malignant neoplasm of prostate Unknown Unknown Not Specified Unknown Malignant neoplasm of lung Unknown sister Unknown Relationship Condition Age at Onset Recorded Date/T meche father Malignant neoplasm of lung Unknown Malignant neoplasm of prostate Unknown Unknown mother Unknown Malignant neoplasm of lung Unknown sister Unknown Advance Directives No Advanced Directives Records Found Advance Directive Response Recorded Date/ Time Advance Directives No January 16 018 2:08pm Chief Complaint and Reason for Visit Chief Complaint back pain back pain Reason for Visit Lumbar spondylosis Obesity Low back pain Lumbar spondylosis Obesity Low back pain Chief Complaint back pain 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 TOO ALEXANDER Reason for Visit Obesity Low back pain Obesity Scoliosis of lumbar region due to degenerative disease of spine in adult Spondylolisthesis, lumbar region Low back pain Chronic pain Degenerative disc disease, lumbar Other low back pain Chief Complaint 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 REFF BY DR ANA LILIA ALEXANDER NEW RT SHOULDER PAIN NX M25.511 - Pain in right shoulder Reason for Visit Chronic pain Other low back pain Other spondylosis with radiculopathy, lumbar region DJD of right shoulder Right shoulder pain Chief Complaint NEW RT SHOULDER PAIN NX M25.511 - Pain in right shoulder 1 MONTH Reason for Visit DJD of right shoulde r Right shoulder pain DJD of right shoulder Right shoulder pain Additional Source Comments (unrecognized sect ion and content) No Status Records FoundNo Status Records FoundNo Status Records Found INFORMATION SOURCE (unrecogn ized section and content) DATE CREATED AUTHOR 10/22/2022 [facility] DATE CREATED AUTHOR AUTHOR'S ORGANIZ ATION 05/12/2024 [facility] DATE CREATED AUTHOR AUTHOR'S ORGANIZ ATION 08/01/2024 [facility] REASON FOR VISIT (unrecogniz ed section and content) [facility]Lab results Care Teams (unrecognized sec tion and content) Team Status: Active Member Role Status Anila Alexander DO Primary Care Provider Active Team Status: Inactive Member Role Status Anila Alexander DO Primary Care Provide r, Attending Provider Active Start: December 24, 2023 End: December 24, 2023 Team Status: Inactive Member Role Status Anila Alexander DO Primary Care Provide r, Attending Provider Active Start: January 05, 2024 End: January 05, 2024 Team Status: Inactive Member Role Status Anila Alexander DO Primary Care Provide r, Referring Provider Active Start: February 17, 2024 End: February 17, 2024 Dylon Ahn MD Attending Provider Active Sta rt: February 17, 2024 End: February 17, 2024 Team Status: Inactive Member Role Status Anila Alexander DO Primary Care Provider Active Start: May 10, 2024 End: May 10, 2024 Dylon Otoole MD Attending Provider Active Star t: May 10, 2024 End: May 10, 2024 Team Status: Active Member Role Status Anila Otoole MD Attending Provider Active Star t: May 10, 2024 Too Alexander DO Primary Care Provider Active Start: May 10, 2024 Team Status: Inactive Member Role Status Dates Dylon Otoole MD Attending Provider Active Star t: May 10, 2024 End: May 10, 2024 Too Alexander DO Primary Care Provider Active Start: May 10, 2024 End: May 10, 2024 Team Status: Inactive Member Role Status Dates Too Alexander DO Primary Care Provider Active Start: June 14, 2024 End: June 14, 2024 Dylon Otoole MD Attending Provider Active Star t: June 14, 2024 End: June 14, 2024 Goals (unrecognized section and content) Goals may be documented in a n alternate section FOR RECORDS PERTAINING TO PATIENTS WHO ARE [...] BE BASED ON THE PRIMARY CLINICAL RECORDS. [employer] [facility]. provides no warranty or guarantee of the accuracy or completeness of information in this document.
[2024-09-12 12:28] VITALS: BP 126/79; PULSE 71; TEMP 36.8; O2SAT 95; BMI 35.5
--- NOTE | 2024-09-12 12:35 | XR_ITS ---
The [address] [address] Patient Name: DYLON JOHNSON MRN: [id number] date: 1960 Sex: M Assigned Patient Location: ED.MAIN Current Patient Location: ER Accession/Order Number: [id number] Exam Date: 09/12/2024 12:40 Report Date: 09/12/2024 13:16 At the request of: JAUN KWON Procedure: XR hand RT min 3V EXAM: XR hand RT min 3V HISTORY: rule out foreign body glass door injury, laceration along the first digit. COMPARISON: None. TECHNIQUE: PA, oblique, lateral x-ray right hand. FINDINGS: No fracture or dislocation. No opaque foreign body. Degenerative changes [id number] most prominent DIP joints thumb through fourth finger. No bony erosion or destruction. Degenerative changes metacarpal phalangeal joints second and third fingers. Moderate to severe degenerative joint disease wrist base of thumb carpal metacarpal joint with sclerosis narrowing and marked spurring. Radial ulnar degenerative changes. Carpal alignment normal. No fracture involving the carpal bones distal radius or ulna. XR/XR hand RT min 3V IMPRESSION: Negative for fracture or dislocation. No foreign body seen. Degenerative joint disease hand and wrist. Electronically authenticated by: ALLA MALONEY Date: 09/12/2024 13:16
--- NOTE | 2024-09-12 12:38 | ED_ITS ---
HPI HPI - Extremity Injury (Upper) General Chief Complaint: Extremity Injury, Upper Stated Complaint: RT HAND IMJURY Time Seen by Provider: 09/12/24 12:28 Source: patient Mode of arrival: walk-in History of Present Illness HPI narrative: 64-year-old male presents to the emergency department for lacerations to his right hand. He accidentally put his hand through a glass window causing this laceration about 30 minutes ago. It has been a long time since she has had a tetanus shot, more than 10 years. He has no weakness or numbness and did not sustain any other injury. Related Data Allergies Allergy/AdvReac Type Severity Reaction Status Date / Time Sulfa (Sulfonamide AdvReac Severe Rash Verified 09/12/24 12:31 Antibiotics) Opioid HPI Opioid Management Most Recent Pain and Opioid Data: No Data to Display Review of Systems ROS Narrative A ten point review of systems is negative except as noted above. Exam Narrative Exam Narrative: Nurses note and vital signs reviewed and patient is not hypoxic. General: The patient appears well and in no apparent distress. Patient is resting comfortably on cart, soaking his hand. Skin: Warm, dry, no pallor noted. There is no rash noted. Head: Normocephalic, atraumatic Eye: Normal conjunctiva, no drainage Ears, Nose, Mouth, and Throat: oral mucosa is moist. Nares patent. Cardiovascular: Regular Rate and Rhythm Respiratory: Patient is in no distress, no accessory muscle use, lungs are clear to auscultation, no wheezing, rales or rhonchi Back: non-tender GI: Soft and nontender Musculoskeletal: Linear laceration 3 cm in length present on the right hand on the extensor side proximal to the base of the thumb. No active bleeding and no obvious foreign bodies. There is some superficial abrasions adjacent to it but no other significant laceration. Thumb has full range of motion. Neurological: A&O, normal speech Psychiatric: Cooperative Constitutional Vital Signs, click to edit/add: Last Vital Signs Temp 98.2 F 09/12/24 12:28 Pulse 71 09/12/24 12:28 Resp 18 09/12/24 12:28 BP 126/79 09/12/24 12:28 Pulse Ox 95 09/12/24 12:28 O2 Del Method Room Air 09/12/24 12:28 Course Vital Signs Vital signs: Vital Signs Temperature 98.2 F 09/12/24 12:28 Pulse Rate 71 09/12/24 12:28 Respiratory Rate 18 09/12/24 12:28 Blood Pressure 126/79 09/12/24 12:28 Pulse Oximetry 95 09/12/24 12:28 Oxygen Delivery Method Room Air 09/12/24 12:28 Temperature 98.2 F 09/12/24 12:28 Pulse Rate 71 09/12/24 12:28 Respiratory Rate 18 09/12/24 12:28 Blood Pressure 126/79 09/12/24 12:28 Pulse Oximetry 95 09/12/24 12:28 Oxygen Delivery Method Room Air 09/12/24 12:28 MDM - Extremity Injury (Upper) MDM Narrative Medical decision making narrative: Sutures are to be removed in 7 to 10 days. Treatment diagnosis and follow-up were discussed with the patient and his . Thumb spica splint applied, application checked by me and found to be appropriate, he is neurovascular intact. No evidence of foreign body. Differential Diagnosis Differential diagnosis: Likely other (Laceration, foreign body) Imaging Data Right hand x-ray: Radiologist's impression: ITS Impressions Hand X-Ray 09/12/24 12:35 IMPRESSION: Negative for fracture or dislocation. No foreign body seen. Degenerative joint disease hand and wrist. Electronically authenticated by: ALLA MALONEY Date: 09/12/2024 13:16 Discharge Plan Discharge Chief Complaint: Extremity Injury, Upper Clinical Impression: Laceration of right hand Patient Disposition: Home, Self-Care Condition: Good Mode of Transportation: Private Vehicle Print Language: [place]anian Instructions: Laceration (ED) Additional Instructions: Sutures to be taken out from tomorrow. Wear splint until stitches are removed. Referrals: Too Gonsalez DO [Primary Care Provider] - 1 week Procedures ED Procedure Instructions Procedures Procedures: The following procedure was performed by me. Local infiltration was carried out with 1% lidocaine without epinephrine resulting in complete skin anesthesia. The area was prepped with Betadine x 3 and draped sterilely. It was explored for foreign bodies and none were found. The wound was then closed with six 4-0 Ethilon sutures resulting in good skin reapproximation and no complications. He tolerated the procedure well.
[2024-09-12] MEDS: ADACEL DIPH,PERTUSS(ACELL),TET VAC/PF 0.5 ML ADULT SYRINGE IM (13:33)
[2024-09-12] MEDS: LIDOCAINE HCL 1% 100 MG/10 ML MDV INJ (13:35)
== END 2024-09-12 13:39 | disposition home or self-care (01) ==
PROVIDERS: Emergency Provider Emergency Medicine; PCP Internal Medicine
DX: S61.411A Laceration without foreign body of right hand, initial encounter (principal); W25.XXXA Contact with sharp glass, initial encounter; Z23 Encounter for immunization
CPT/HCPCS: 12002; 73130; 90471; 90715; 99284

== ENCOUNTER 2025-08-18 16:19 | Outpatient (OUT) | payer OTHER, MEDICARE, SELFPAY ==
--- OUTSIDE RECORDS SUMMARY | 2025-08-18 16:34 | XMS_ITS | Clinical Summary ---
Author Organization [facility] Address [address] [place] [address] Care Team Providers Care Collections Rep Name Role Phone Unavailable Primary Care Provider Unavailabl e Social History Tobacco UseTypesPacks/DayYears UsedDateSmoking Tobacco: Never AssessedSex and Gender InformationValueDate RecordedSex Assigned at BirthNot on fileLegal Sex Male01/01/2023 6:54 PM EDTGender IdentityNot on fileSexual OrientationNot on file Last Filed Vital Signs Vital SignReadingTime TakenCommentsBlood Pressure--Pulse--Temperature-- Respiratory Rate--Oxygen Saturation--Inhaled Oxygen Concentration--Kbkleq56.1 kg (214 lb)12/28/2021 12:00 PM VDQXaaqkx557.2 cm (5' 7 )12/28/2021 12:00 PM ESTBody Mass Index33.52012/28/2021 12:00 PM EST Plan of Treatment Not on file
--- OUTSIDE RECORDS SUMMARY | 2025-08-18 16:34 | XMS_ITS | Clinical Summary ---
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
--- OUTSIDE RECORDS SUMMARY | 2025-08-18 16:35 | XMS_ITS | CCD ---
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 Name Role Phone DR TOO GONSALEZ Primary Care Unavailable REQUEST, NONE LISTED Admitting Unavaila ble REQUEST, NONE LISTED Attending Unavaila ble REQUEST, NONE LISTED Consulting Unavaila ble Too Gonsalez Unavailable MD Dylon Otoole Attending Provider [phone] DO Too Gonsalez Primary Care Provider Dylon Otoole Attending Unavailable Dylon Otoole Admitting Unavailable Too Gonsalez Primary Care Unavailable Too Gonsalez Primary Care Unavailable ELOY De La Torre Attending Unavailable ELOY De La Torre Admitting Unavailable Too Gonsalez Primary Care Unavailable Too Gonsalez DO Primary Care Provider Too Gonsalez DO Attending Provider [phone] Allergies Allergy ClassificationReported Allergen(s)Allergy TypeDate of OnsetReaction(s) Facility (1 source)Sulfonamides (Antibiotic)Drug allergy (disorder)79-67-5856[facility] (2 sources)Sulf-10Drug allergyUnkLandmark Medical Center [email or web address] Other (2 sources)Substance with sulfonamide structure and antibacterial mechanism of action (substance)Drug oqiicrr12-96-6967CpiujhjLjryp Eterniam Other (1 source)Sulfonamides (Antibiotic)Drug allergy (disorder)39-13-4461PzfmpylrjTuscaraw[facility] Rep[facility] Medications Current Medications MedicationDrug Class(es)DatesSig (Normalized)Sig (Original)atorvastatin 20 mg oral tablet (12 sources)HMG-CoA Reductase InhibitorStart: 90-17-1394ejgq 1 tablet by mouth once daily in the eveningAtorvastatin 20 mg tablet Active 20 MG PO Every evening April 11, 2025 10:06am Complies withdrug therapyStart: 09-01-2024 End: 89-37-7136sdlz 1 tablet by mouth once daily in the eveningAtorvastatin 20 mg tablet Discontinued 0 .ROUTE .COMPLEX March 10, 2025 7:35am April 11, 2025 10:09am TAKE 1 TABLET BY MOUTH ONCE DAILY IN THE EVENINGStart: 09-01-2024 End: 07-62-3399gvae 1 tablet by mouth once dailyAtorvastatin 20 mg tablet Discontinued 20 MG PO Daily September 01, 2024 1:00am September 01, 2024 9:37amStart: 12-24-2023 End: 23-72-8390lesw 1 tablet by mouth once dailyAtorvastatin 20 mg tablet Discontinued 20 MG PO Daily December 24, 2023 1:00am February 17, 2024 3:27pmtake 1 tablet by mouth once daily in the eveningAtorvastatin Calcium 20 MG TAKE 1 TABLET BY MOUTH ONCE DAILY IN THE EVENING ActiveNo Name (No Known Home Meds) (3 sources)Start: 45-76-5362Xe Name (No Known Home Meds) Active May 10, 2024 12:00amtelmisartan 20 mg oral tablet (3 sources)Angiotensin 2 Receptor BlockerStart: 29-21-3436aohj 1 tablet by mouth once dailyTelmisartan 20 mg tablet Active 20 MG PO Daily April 11, 2025 10:06am Complies with drug therapyStart: 02-25-2025 End: 37-64-8176yhaz 1 tablet by mouth once dailyTelmisartan 20 mg tablet Discontinued 0 .ROUTE .COMPLEX February 25, 2025 7:43am April 11, 2025 10:09am Take 1 tablet by mouth once dailyStart: 08-23-2024 End: 88-26-2319nkdp 1 tablet by mouth once dailyTelmisartan 20 mg tablet Discontinued 20 MG PO Daily August 23, 2024 1:00am February 25, 2025 7:43am Completed/Discontinued Medications MedicationDrug Class(es)DatesSig (Normalized)Sig (Original)acetaminophen 325 mg / HYDROcodone bitartrate 5 mg oral tablet (6 sources)Opioid AgonistStart: 01-22-2018 End: 93-11-0979ysph 1 tablet by mouth every four hours as needed for pain Hydrocodone-Acetaminophen ([place]) 5-325 mg tablet Discontinued 1 TAB PO Q4H as needed for pain January 22, 2018 September 25, 2021 12:31pmacetaminophen 325 mg / oxyCODONE hydrochloride 5 mg oral tablet (8 sources)Opioid AgonistStart: 10-08-2021 End: 00-64-5962agbf 1-2 tablets by mouth every six hours as needed for pain Oxycodone-Acetaminophen (Percocet) 5-325 mg tablet Discontinued 2 TAB PO Q6H as needed for pain 45 October 08, 2021 December 24, 2023 12:48pm 1-2 tabs po q 6 hours prn painStart: 04-24-9540kryp 1 tablet by mouth every four to six hours as neededoxyCODONE-Acetaminophen 5-325 MG 1 tablet as needed Orally every 4-6 hours Mar, Activeazithromycin 250 mg oral tablet (1 source)Macrolide AntimicrobialStart: 10-21-2024 End: 50-55-0918Vtmcmynigzwd 250 mg tablet Discontinued 250 MG PO .COMPLEX 6 October 21, 2024 1:00am April 11, 2025 10:08am 2 tabs on first day followed by 1 tab on days 2-5cyclobenzaprine hydrochloride 10 mg oral tablet (5 sources)Muscle RelaxantStart: 02-17-2024 End: 75-22-5670ijok 1 tablet by mouth twice daily as needed for muscle spasms Cyclobenzaprine 10 mg tablet Discontinued 10 MG PO Twice daily as needed for muscle spasm February 17, 2024 12:00am May 10, 2024 11:41amgabapentin 300 mg oral capsule (8 sources)Anti-epileptic AgentStart: 12-02-2017 End: 63-61-6183Rpalunnksj 300 mg capsule Discontinued 1 CAP PO As Directed January 19, 2018 12:00am September 25, 2021 12:31pmmeloxicam 15 mg oral tablet (11 sources)Nonsteroidal Anti-inflammatory DrugStart: 01-01-2024 End: 34-11-7807jhlf 1 tablet by mouth once dailyMeloxicam 15 mg tablet Discontinued 15 MG PO Daily February 17, 2024 12:00am May 10, 2024 11 :70uzJfrkshrc-Lvk-Gzmec-Vit K-Lycop (Men's 50 Plus Multivitamin) 400-20-370 mcg Tablet (6 sources)Start: 09-25-2021 End: 92-09-9196jbvv 50-400 tablets by mouth once zsvgyJrquzrvx-Cpe-Iglgd-Vit K- Lycop (Men's 50 Plus Multivitamin) 400-20-370 mcg Tablet Discontinued 1 TAB PO Daily September 25, 2021 1:00am December 24, 2023 11:26amnaproxen sodium 220 mg oral tablet (6 sources)Nonsteroidal Anti-inflammatory DrugStart: 09-25-2021 End: 50-22-6897Egcsvdmb Sodium (Aleve) 220 mg Tablet Discontinued 220 MG PO As Directed as needed for Pain September 25, 2021 1:00am December 24, 2023 11:26am Instructed to stop 7 days prior to surgerypredniSONE 20 mg oral tablet (6 sources)Start: 12-24-2023 End: 88-85-9408Vudfmwnizb 20 mg tablet Discontinued 20 MG PO As Directed December 24, 2023 1:00am February 17, 2024 3:27pm 1 tab tid w/ food x 3 days, then bid w/ food x 3 days, then qd w/ food x 3 daystiZANidine 4 mg oral tablet (12 sources)Central alpha-2 Adrenergic AgonistStart: 12-24-2023 End: 82-00-5735jxms 1 tablet by mouth once daily at bedtimeTizanidine 4 mg tablet Discontinued 4 MG PO Daily at bedtime January 01, 2024 8:18pm February 17, 2024 3:27pm 1/2 - 1 PO q HStraMADol hydrochloride 50 mg oral tablet (8 sources)Opioid AgonistStart: 01-19-2018 End: 82-39-7272Dqtzozyb 50 mg tablet Discontinued 1 CAP PO As Directed January 19, 2018 12:00am January 22, 2018 1:12pmStart: 01-19-2018 End: 74-25-7134Dggbwgbm Discontinued 1 CAP PO As Directed January 19, 2018 12:00am January 22, 2018 1:12pmStart: 80-24-2446vtmr 1-2 tablets by mouth every four to six hours as neededtraMADol HCl 50 MG 1-2 tablet as needed Orally every 4-6 hrs 13 Feb, 2018 Not-Taking/PRNTriamcinolone (2 sources)CorticosteroidStart: 14-61-1020GCXFXHM - 10 mg Aug, 60 mg Problems Problem ClassificationProblemDateDocumented DateEpisodic/ChronicAbdominal hernia (6 sources)Incisional hernia; Translations: [Incisional hernia without obstruction or gangrene]92-08-2874VcxqotyyRgtvlwh on above:Problem List clean-up per request of Phys. EHR CmteDisorders of lipid metabolism (8 sources)Mixed hyperlipidemia; Translations: [Mixed hyperlipidemia]Chronic Essential hypertension (2 sources)Hypertensive disorder; Translations: [Essential (primary) hypertension]49-96-3997IjmycpbMkivugcluvzmll (8 sources)Osteoarthritis of joint of right shoulder region; Translations: [Primary osteoarthritis, right shoulder]12-07-4189KmvrwyfJurjm acquired deformities (6 sources)Other secondary scoliosis, lumbar region; Translations: [Scoliosis of lumbar region due to degenerative disease of spine in adult]55-08-6884Dfrjczh Other acquired deformities (5 sources)Lumbar spondylolisthesis; Translations: [Spondylolisthesis, lumbar region]33-82-5688GqrwdmuvMofhq acquired deformities (1 source)Spondylolisthesis, lumbar region; Translations: [Acquired spondylolisthesis]47-53-3867CywqfisjZqxjo liver diseases (10 sources)Fatty (change of) liver, not elsewhere classified; Translations: [Nonalcoholic fatty liver disease]ChronicOther nervous system disorders (4 sources)Cubital tunnel syndrome; Translations: [Lesion of ulnar nerve, left upper limb]ChronicOther nervous system disorders (4 sources)Carpal tunnel syndrome of right wrist; Translations: [Carpal tunnel syndrome, right upper limb]ChronicOther nervous system disorders (4 sources)Carpal tunnel syndrome of left wrist; Translations: [Carpal tunnel syndrome, left upper limb]ChronicOther nervous system disorders (4 sources)Chronic pain; Translations: [Other chronic pain]58-31-0793Wqegodx Other nervous system disorders (3 sources)Other chronic pain; Translations: [Other chronic pain]02-17-2024 ChronicOther non-traumatic joint disorders (8 sources)Pain in right shoulder; Translations: [Right shoulder pain]Onset: 110014-17-1549DdaucxmgZgalh nutritional; endocrine; and metabolic disorders (2 sources)Severe obesity; Translations: [Morbid (severe) obesity due to excess calories]ChronicOther nutritional; endocrine; and metabolic disorders (4 sources)Body mass index 30+ - obesity; Translations: [Obesity, unspecified] ChronicOther nutritional; endocrine; and metabolic disorders (1 source)Morbid (severe) obesity due to excess caloriesChronicOther nutritional; endocrine; and metabolic disorders (1 source)Body mass index (BMI) 35.0-35.9, adultChronicOther nutritional; endocrine; and metabolic disorders (5 sources)Obesity caused by energy imbalance; Translations: [Morbid (severe) obesity due to excess calories]31-58-5974AbehmtbZwtoc nutritional; endocrine; and metabolic disorders (7 sources)Obesity; Translations: [Obesity, unspecified]51-79-2535NbegddaJwbur nutritional; endocrine; and metabolic disorders (4 sources)Obesity, unspecified; Translations: [Obesity, unspecified]12-24-2023 ChronicOther screening for suspected conditions (not mental disorders or infectious disease) (4 sources)Encounter for screening for malignant neoplasm of prostate; Translations: [Patient encounter status]EpisodicComment on above:PSA: 0.85 - 07/2023, 1.16 - 4Residual codes; unclassified (2 sources)Postprocedural state finding; Translations: [Other specified postprocedural states]EpisodicSpondylosis; intervertebral disc disorders; other back problems (15 sources)Lumbar spondylosis; Translations: [Spondylosis without myelopathy or radiculopathy, lumbar region]94-44-6243CzqumcnTcsoupjvqkh; intervertebral disc disorders; other back problems (15 sources)Low back pain; Translations: [Chronic lumbosacral pain]12-24-2023 EpisodicSubstance-related disorders (10 sources)Tobacco dependence in remission; Translations: [Nicotine dependence, cigarettes, in remission]Chronic Results Test NameValueInterpretationReference RangeFacilityCoding Summaryon 11-01-2024 Coding SummaryMLBase 64 CqwrhbxxYYs2oGi+PGhlYWQ+LG0JTJQnO75ltPAkhI1sF8UAPQnEAxgjMRYJYXrRWrXdxwWgMF5knUXl ZXJu [file] bGx (more content not included)...NormalSelect Medical Trihealth Rehabilitation HospitalED Clinical Summaryon [id number] [facility] [address] [place] [address] Clinical Summary PERSON INFORMATION Name: DYLON JEFFERSON Age: 64 Years Sex: MALE : 1960 MRN: Acct#: Visit Reason: UC - Laceration; RT HAND LAC Arrival: 10/16/2024 16:47:34 Discharge: 10/16/2024 18:30:00 LOS: 000 01:43 Check In: 10/16/2024 16:47:34 Checkout: 10/16/2024 18:30:00 Address: [address] [place] [address] PCP: Too Gonsalez PROVIDER INFORMATION Provider Role Assigned Unassigned Merna Prado MA ED Nurse 10/16/2024 16:50:12 Terell De La Torre CNP ED PA 10/16/2024 16:51:04 VITALS INFORMATION Vital Sign Triage Latest Temperature Tympanic Temperature Temporal Artery Pulse Rate O2 Sat 95 % 95 % Respiratory Rate Blood Pressure /94 mmHg /94 mmHg MEDICAL INFORMATION Medications Given: Medication Dose Route lidocaine (Lidocaine 1% injectable solution) 3 mL Intradermal Allergy Information: sulfa drug PHYSICIAN DOCUMENTATION DISCHARGE INFORMATION: Discharge Disposition: Home Discharge Location: Home PATIENT EDUCATION INFORMATION Instructions: Contusion, Myjl-no-Ewqx; Laceration Care, Adult, Xybg-ac-Mwet Follow-Up: With: Address: When: Too Gonsalez [address] [place] [id number] Within 3 to 5 days Comments: - History and physical exam compatible today with right hand laceration and right hand contusion -X-ray results pending at this time. Will call with significant abnormalities, take appropriate measures and refer if needed -Right hand laceration repaired per procedure note -Area was cleaned and nonadherent dressing placed. Change dressing daily -Discussed hygiene with dressing intact. -Monitor report any signs of infection such as redness, swelling, purulent drainage or other concerns to urgent care -Recommend sutures to be removed in 10 days -Report any concerns to urgent care or ED follow with PCP as directed -Care plan discussed with patient in agreement verbalized understanding DIAGNOSIS: 1:Contusion of right hand; 2:Laceration of right hand Patient Understands: Yes - Patient/family/caregiver verbalizes understanding of instructions given Comment:[facility] CenterED Patient Summaryon [id number] Patient Summary [facility] ? Urgent Care [address] [place] [address] PATIENT DISCHARGE INSTRUCTIONS Patient Information Name: DYLON JEFFERSON Age: 64 Years Date of : 1960 Reason For Visit: UC - Laceration; RT HAND LAC Arrival Time: 10/16/2024 16:47:34 Primary Care Physician: Too Gonsalez Attending Physician: Terell De La Torre CNP Comment: Patient Education With: Address: When: Too Gonsalez [address] [place] [address] Within 3 to 5 days Comments: - History and physical exam compatible today with right hand laceration and right hand contusion -X-ray results pending at this time. Will call with significant abnormalities, take appropriate measures and refer if needed -Right hand laceration repaired per procedure note -Area was cleaned and nonadherent dressing placed. Change dressing daily -Discussed hygiene with dressing intact. -Monitor report any signs of infection such as redness, swelling, purulent drainage or other concerns to urgent care -Recommend sutures to be removed in 10 days -Report any concerns to urgent care or ED follow with PCP as directed -Care plan discussed with patient in agreement verbalized understanding Contusion A contusion is a deep bruise. This is a result of an injury that causes bleeding under the skin. Symptoms of bruising include pain, swelling, and discolored skin. The skin may turn blue, purple, or yellow. Follow these instructions at home: Managing pain, stiffness, and swelling You may use RICE. This stands for: ? Resting. ? Icing. ? Compression, or putting pressure on the injured area. ? Elevating, or raising the injured area. To follow this method, do these actions: ? Rest the injured area. ? If told, put ice on the injured area. To do this: ? Put ice in a plastic bag. ? Place a towel between your skin and the bag. ? Leave the ice on for 20 minutes, 2?3 times per day. ? If your skin turns bright red, take off the ice right away to prevent skin damage. The risk of skin damage is higher if you cannot feel pain, heat, or cold. ? If told, apply compression on the injured area using an elastic bandage. Make sure the bandage isnot too tight. If the area tingles or has a loss of feeling (numbness), remove it and put it back on as told by your doctor. ? If possible, elevate the injured area above the level of your heart while you are sitting or lying down. General instructions ? Take hqxq-lzd-aapcezs and prescription medicines only as told by your doctor. ? Keep all follow-up visits. Your doctor may want to see how your contusion is healing with treatment. Contact a doctor if: ? Your symptoms do not get better after several days of treatment. ? Your symptoms get worse. ? You have trouble moving the injured area. Get help right away if: ? You have very bad pain. ? You have a loss of feeling (numbness) in a hand or foot. ? Your hand or foot turns pale or cold. This information is not intended to replace advice given to you by your health care provider. Make sure you discuss any questions you have with your health care provider. Document Revised: 03/24/2023 Document Reviewed: 03/24/2023 [employer] Patient Education ? 2023 [employer] Laceration Care, Adult A laceration is a cut that may go through all layers of the skin. The cut may also go into the tissue that is right under the skin. Some cuts heal on their own. Other cuts need to be closed with stitches (sutures), ynes, skin adhesive strips, or skin glue. Taking care of your cut lowers your risk of infection, helps your injury heal better, and may prevent scarring. General tips ? Keep your wound clean and dry. ? Do not scratch or pick at your wound. ? Wash your hands with soap and water for at least 20 seconds before and after touching your wound or changing your bandage (dressing). If you cannot use soap and water, use hand trader fixed income. ? Do not usedisinfectants or antiseptics, such as rubbing alcohol, to clean your wound unless told by your doctor. ? If you were given a bandage, change it at least once a day, or as told by your doctor. You shouldalso change it if it gets wet or dirty. How to take care of your cut If your doctor used stitches or ynes: ? Keep the wound fully dry for the first 24 hours, or as told by your doctor. After that, you may take a shower or a bath. Do not soak the wound in water until after the stitches or ynes have beentaken out. ? Clean the wound once a day, or as told by your doctor. To do this: ? Wash the wound with soap and water. ? Rinse the wound with water to remove all soap. ? Pat the wound dry with a clean towel. Do not rub the wound. ? After you clean the wound, put a thin layer of antibiotic ointment, another ointment, or a nonstick bandage on it as told by your doctor. This will help to: ? Preven (more content not included)...[facility] Record on [id number] [address] [place] [address] PATIENT DISCHARGE INSTRUCTIONS Patient Information Name: DYLON JEFFERSON Age: 64 Years Date of : 1960 Reason For Visit: UC - Laceration; RT HAND LAC Arrival Time: 10/16/2024 16:47:34 Primary Care Physician: Too Gonsalez Attending Physician: Terell De La Torre CNP Comment: Visit Diagnosis: Diagnoses This Visit Contusion of right hand (S60.221A) Laceration of right hand (S61.411A) UC - Laceration ([id number]) If you received any narcotics, sedation, or any other medication that causes drowsiness for the next 24 hours, unless otherwise directed: ? Do not drive a car. ? Do not operate machinery such as power tools, lawn mowers, drills, sewing machines, or stoves ? Avoid alcoholic beverages and drugs for allergies, nerves, or sleep ? Do not make important personal or business decisions or sign any legal documents With: Address: When: Too Gonsalez [address] [place] [id number] Within 3 to 5 days Comments: - History and physical exam compatible today with right hand laceration and right hand contusion -X-ray results pending at this time. Will call with significant abnormalities, take appropriate measures and refer if needed -Right hand laceration repaired per procedure note -Area was cleaned and nonadherent dressing placed. Change dressing daily -Discussed hygiene with dressing intact. -Monitor report any signs of infection such as redness, swelling, purulent drainage or other concerns to urgent care -Recommend sutures to be removed in 10 days -Report any concerns to urgent care or ED follow with PCP as directed -Care plan discussed with patient in agreement verbalized understanding Medication Information: The exam and treatment you received today in the [facility] were for an urgent problem and are not intended as complete care. It is important for you to follow up with a doctor, nurse practitioner, or physician?s market research assistant for ongoing care. If your symptoms become worse or you do not improve as expected and you are unable to reach your usual health care provider, you should return to the Emergency Department, we are available 24 hours a day. For those patients who have received Radiology results, the interpretation of your X-ray as given to you by our Urgent Care physician is only a preliminary report. The Radiologist will review your films and if there is a change in the diagnosis you will be notified by phone. Please make sure you have provided a working phone number so we can reach you if necessary. In the event that you had a lab culture while you were a patient in the Urgent Care, you will be notified by phone if there is a need to change your antibiotic. Please make sure you have provided a working phone number so we can reach you if necessary. [facility] has provided you with a complete list of medications post discharge. Please inform your fitter hand/provider of your visit and for further instruction on these medications. Any specific questions regarding your chronic medications and dosages should be discussed with your primary care physician(s) and/or pharmacist. Additional medications on your home medication list not specifically addressed. Please contact the ordering physician if you have questions about these medications. atorvastatin (atorvastatin 20 mg oral tablet) TAKE 1 TABLET BY MOUTH ONCE DAILY IN THE EVENING. telmisartan (telmisartan 20 mg oral tablet) TAKE 1 TABLET BY MOUTH ONCE DAILY. Visit Information Allergies: Substance Reaction Symptoms Type Comments sulfa drug Drug Vital Signs: Vitals and Measurements this Visit (last charted value for your 10/16/2024 visit) Vital Signs This Visit Peripheral Pulse Rate: 75 bpm Respiratory Rate: 20 br/min Systolic Blood Pressure: 130 mmHg Diastolic Blood Pressure: 94 mmHg SpO2: 95 % Oxygen Therapy: Room air Blood Pressure Method: Automatic Measurements This Visit Height/Length Measured: 170.18 cm Weight Measured: 95.25 kg Weight Dosin.250 kg Body Mass Index: 32.89 kg/m2 BSA Measured: 2.12 m2 Problems List: Problem Onset Comments Denies Patient Education Contusion A contusion is a deep bruise. This is a result of an injury that causes bleeding under the skin. Symptoms of bruising include pain, swelling, and discolored skin. The skin may turn blue, purple, or yellow. Follow these instructions at home: Managing pain, stiffness, and swelling You may use RICE. This stands for: ? Resting. ? Icing. ? Compression, or putting pressure on the injured area. ? Elevating, or raising the injured area. To follow this method, do these actions: ? Rest the injured area. ? If told, put ice on the injured area. To do this: ? Put ice in a plasti (more content not included)...[facility] CenterXR Hand 2 Views Righton [id number] Hand 2 Views RightCLINICAL HISTORY: Checking up a camper. Serge kicked out subsequently sand and the serge handle into his fifth metacarpal palmar aspect of hand. Approximately 2.5 cm laceration noted right fifth metacarpal midshaft area. Rule out acute process or foreign body. RIGHT HAND 2 VIEWS: COMPARISON: 09/12/2024. FINDINGS/IMPRESSION: 1. Soft tissue swelling is noted in the right hand. No radiopaque foreign body or abnormal gas bubbles are seen. 2. Severe first carpometacarpal joint osteoarthrosis remains, with severe joint space narrowing, subchondral sclerosis, and large marginal osteophytes. 3. Moderate osteoarthrosis remains in the distal radioulnar joint, first through third MTP joints and scattered throughout the DIP joints. 4. No fracture, malalignment, or other acute bony abnormality is seen. Final Dictated by: Mario Jalloh MD Dictated DT/TM: 10/16/24 7:37 Signed (Electronic Signature): Mario Jalloh MD10/16/24 7:39 pm Technologist: YENSelect Medical Cleveland Clinic Rehabilitation Hospital, Edwin ShawConsent Formson [id number] [id number] Medical Center CMP Standardon [id number] Non AA>60Invalid Interpretation [facility] [facility] CenterComment on above:Performed By: #### [id number], 4426091, 1130650, 9385581, 7221829219, 2894563, [id number] #### [facility] (DEFAULT) [address] [place] [address] 63688zWQC AA>60Invalid Interpretation [facility] Comment on above:Performed By: #### 7721187, 7193600, 7484200, 9377097, 0873012728, 6291090, [id number] #### [facility] (DEFAULT) [address] [place] [address] 25416Vsyzmjz [Mass/Vol]4.1 g/dLNormal3.5-5.0[facility] Comment on above:Performed By: #### 6221152, 4051080, 9963791, 2088052, 8117049760, 8265707, 8985812080 #### [facility] (DEFAULT) [address] [place] [address] 62963Bhd Phos81 IU/VWccrie50-49Kgcpsabl HospitalComment on above:Performed By: #### 1604148, 3813132, 6858433, 4958409, 1730882077, 4003448, 2859683881 #### [facility] (DEFAULT) [address] [place] [address] 85034LKA [Catalytic activity/Vol]26.0 U/INywwlc40.0-63.0 [facility] HospitalComment on above:Performed By: #### 0290510, 4634205, 3162792, 3305737, 1609590390, 4416790, 7121569240 #### [facility] (DEFAULT) [address] [place] [address] 03663HQX [Catalytic activity/Vol]26 U/MEplaqd84-21Uadsyvkh HospitalComment on above:Performed By: #### 8942550, 1893871, 0242852, 3858064, 2396985331, 8402614, 1635564405 #### [facility] (DEFAULT) [address] [place] [address] 60702Ixii Total1.6 mg/dLHigh0.3-1.2[facility] HospitalComment on above:Performed By: #### 8219372, 9056086, 2974700, 0006478, 2773282743, 1249505, 3844835428 #### [facility] (DEFAULT) [address] [place] [address] 02556Ucdwmii [Mass/Vol]8.6 mg/dLLow8.9-10.3M[facility] Comment on above:Performed By: #### 8333184, 8350063, 4712820, 8898574, 6728822165, 5219278, 5893029662 #### [facility] (DEFAULT) [address] [place] [address] 20322Mzrquede [Moles/Vol]103 mmol/KCgknsn245-602Hhiuvzwe HospitalComment on above:Performed By: #### 2280901, 0817769, 3809013, 5650383, 3556836211, 6742145, 5244295159 #### [facility] (DEFAULT) [address] [place] [address] 81708XN7 [Moles/Vol]25 mmol/IOpjudh22-67Auhqhmbw Hospital Comment on above:Performed By: #### 4238290, 5908184, 2003044, 0194612, 7356667533, 9701865, 4456534412 #### [facility] (DEFAULT) [address] [place] [address] 01635Ybjvqjtlvs [Mass/Vol]0.75 mg/dLLow0.90-1.30[facility] HospitalComment on above:Performed By: #### 2625677, 3510551, 9585510, 2980384, 9792187260, 1517265, 6800444728 #### [facility] (DEFAULT) [address] [place] [address] 51101Zroqagk [Mass/Vol]83.0 mg/hVIqinlm97.0-118.0[facility] HospitalComment on above:Performed By: #### 0357920, 9376162, 6087751, 2310175, 1152905328, 8990163, 8330233281 #### [facility] (DEFAULT) [address] [place] [address] 47232Ghcrqryld [Moles/Vol]3.6 mmol/LNormal3.6-5.1[facility] HospitalComment on above:Performed By: #### 4848583, 3616677, 9860617, 5836971, 5033617274, 2066579, 7928551302 #### [facility] (DEFAULT) [address] [place] [address] 67279Nqksjyo [Mass/Vol]6.7 g/dLNormal6.5-8.1[facility] Hospital Comment on above:Performed By: #### 5380929, 8659832, 2506447, 9064116, 8518525823, 8142821, 4150790521 #### [facility] (DEFAULT) [address] [place] [address] 87447Tcwflg [Moles/Vol]135.0 mmol/MPak870.0-144.0[facility] HospitalComment on above:Performed By: #### 8485312, 7111390, 3661227, 8365715, 6966957282, 1811531, 0885106489 #### [facility] (DEFAULT) [address] [place] [address] 93183Ppnr nitrogen [Mass/Vol]11 mg/dLNormal8-26[facility] HospitalComment on above:Performed By: #### 1309809, 5020256, 7035715, 8560059, 8024291926, 7858179, 4411353667 #### [facility] (DEFAULT) [address] [place] [address] 63164Fcsjcym/Globulin [Mass ratio]1.5 {ratio}Normal1.4-2.6 [facility] HospitalComment on above:Performed By: #### 1241096, 9432988, 5807260, 4055046, 4525125661, 4669776, 3314951170 #### [facility] (DEFAULT) [address] [place] [address] 20169Kumbq gap [Moles/Vol]10.6 mmol/LNormal5.0-19.0[facility] HospitalComment on above:Performed By: #### 6733902, 3368433, 1366199, 7025639, 3869060158, 6525551, 8928891794 #### [facility] (DEFAULT) [address] [place] [address] 13872Pekkignl (S) [Mass/Vol]2.6 g/dLNormal1.5-4.3[facility] HospitalComment on above:Performed By: #### 4140684, 8113538, 7515236, 4989672, 9443324128, 2391119, 1326281166 #### [facility] (DEFAULT) [address] [place] [address] 56769Nnpewfxzyw069 mOsm/LInvalid Interpretation CodeParkwood Hospital HospitalComment on above:Performed By: #### 6988909, 8977584, 3135602, 2093037, 7259486833, 1005996, 4951544125 #### [facility] (DEFAULT) [address] [place] [address] 41392Iqwr nitrogen/Creatinine [Mass ratio]14.6 mg/mgNormal 4.6-16.2Magrtuscarawas hospital HospitalComment on above:Performed By: #### 1437674, 5105042, 0007284, 8242988, 3834442901, 5038463, 0512254287 #### [facility] (DEFAULT) [address] [place] [address] 39537UEDil 93-98-1911Ecnkz glutamyl transferase [Catalytic activity/Vol]36.0 U/LNormal7.0-50.0[facility] HospitalComment on above:Performed By: #### 0396822, 9578911, 5225515, 5685402, 5596662696, 0852416, 5141210068 #### [facility] (DEFAULT) [address] [place] [address] 97048Lxns Levelon 51-29-0833Byzy [Mass/Vol]123.0 ug/dLNormal 45.0-182.0[facility] HospitalComment on above:Performed By: #### 8475257, 3853335, 9034572, 4374960, 9115390367, 6123075, 7187777019 #### [facility] (DEFAULT) [address] [place] [address] 32178BDHnb 79-41-8026NRY799.0 IU/LHigh98.0-192.0[facility] HospitalComment on above:Performed By: #### 4862319, 8058961, 1766744, 9842752, 8995344418, 8492195, 4444763433 #### [facility] (DEFAULT) [address] [place] [address] 92706Yugcj Panel Standardon 25-81-4276Xglhctftzfs [Mass/Vol] 267.0 mg/hTOsoy04.0-200.0[facility] HospitalComment on above:Performed By: #### 3961939, 4343084, 8484981, 2970629, 8757439250, 8174001, 3260386143 #### [facility] (DEFAULT) [address] [place] [address] 13719Xrfolzunmkp in HDL [Mass/Vol]55 mg/nTIjqysp62-95Xyxoqoai HospitalComment on above:Performed By: #### 3312252, 6071469, 8642849, 6225377, 8354101318, 0069138, 6363681337 #### [facility] (DEFAULT) [address] [place] [address] 98111Dgpwphfbyovq [Mass/Vol]199.0 mg/dLHigh0.0-150.0[facility] HospitalComment on above:Performed By: #### 8053605, 8458140, 3430237, 7547852, 5709176731, 1052046, 9862344488 #### [facility] (DEFAULT) [address] [place] [address] 58336Zcljmjanvnw in LDL [Mass/Vol]172 mg/dLHigh1-100[facility] HospitalComment on above:Performed By: #### 6546081, 7073644, 8077509, 1129579, 2500920444, 2753965, 7814162625 #### [facility] (DEFAULT) [address] [place] [address] 42251Vrfpwiiidny.total/Cholesterol in HDL [Mass ratio]4.8 {ratio}High0.0-4.5[facility] HospitalComment on above:Performed By: #### 5950979, 4117286, 7971288, 4946959, 9737141456, 6870383, 6392671467 #### [facility] (DEFAULT) [address] [place] [address] 18056QMGQ.40 mg/dLNormal5-40[facility] HospitalComment on above: Performed By: #### 3598021, 1361928, 3553391, 0716494, 7551144572, 8408239, 4346603772 #### [facility] (DEFAULT) [address] [place] [address] 05749VED Screenon 21-91-1791ZHJ Screen1.16 ng/mLNormal0.00-4.00 [facility] HospitalComment on above:Result Comment: [employer] Access Clinical System (Chemiluminescence) Values obtained with different assay methods or kits cannot be used interchangeably. Results cannotbe interpreted as absolute evidence of the presence or absence of malignant disease. Performed By: #### [id number] #### [facility] (DEFAULT) [address] [place] [address] 59261Nasgaa 55-04-7590Breetcnwb [Mass/Vol]2.5 mg/dLNormal 2.5-4.6[facility] HospitalComment on above:Performed By: #### 3491986, 5249481, 5986540, 6070159, 7912893280, 0354091, 9661254106 #### [facility] (DEFAULT) [address] [place] [address] 98539Tgxo Acidon 11-02-5873Ewqvc [Mass/Vol]6.7 mg/dLNormal 4.8-8.7[facility] HospitalComment on above:Performed By: #### 5303806, 2186337, 3562962, 7515822, 9011952233, 9746133, 2924202736 #### [facility] (DEFAULT) [address] [place] [address] 55096FO shoulder RT min 2V*on 28-03-7555MA shoulder RT min 2V* [facility] [address] [place] [address] XRay Report Signed Patient: Dylon Jefferson MR#: [id number] : 1960 Acct:[id number] Age/Sex: 64 / M ADM Date: 05/10/24 Loc: [facility] [place] Room: Type: [facility] Attending Dr: Dylon Otoole MD Copies to: [...] Juan Romero M.D.05/10/2024 3:34 PM Dictation Location: [place] [address] Transcribed By: [facility] 05/10/24 1534 Dictated By: Juan Romero DO 05/10/24 1534 Signed By: 05/10/24 1534[facility] Physician GroupDAT - LIPID PROFILEon 10-22-2022 CHOL-HDL RATIO [facility] on above:Result Comment: 3.3 - 4.4 LOW RISK 4.4 - 7.1 AVERAGE RISK 7.1 - 11.0 MODERATE RISK >11.0 HIGH RISKPerformed By: #### DATLIPI, DLDL #### [facility] [address] [place] [address] Dr. Neptali WadeCholesterol [Mass/Vol]260 mg/dLCritically high<=200The [facility] on above:Performed By: #### DATLIPI DLDL #### [facility] [address] [place] [address] Dr. Neptali WadeCholesterol in HDL [Mass/Vol]38 mg/dLCritically jda68-27Zgc [facility] on above:Performed By: #### DATLIPI DLDL #### [facility] [address] [place] [address] Dr. Neptali Avilesesterjessica.total/Cholesterol in HDL [Mass ratio]6.8 {ratio} NormalWestern Reserve HospitalComhelen newberry [facility] hospital on above:Performed By: #### DATLIPI DLDL #### [facility] [address] [place] [address] Dr. Neptali Reed NORMAL> or = 60 mg/dl - LOW CARDIOVASCULAR RISK <40 mg/dl - HIGH CARDIOVASCULAR RISKRegency Hospital Cleveland WestComhelen [facility] hospital on above:Performed By: #### DATLIPI DLDL #### [facility] [address] [place] [address] Dr. Neptali WadeLDL CALC NORMALSEE [facility] CenterCom[facility] on above:Result Comment: <100 mg/dl OPTIMAL 100 - 129 mg/dl NEAR OR ABOVE OPTIMAL 130 - 159 mg/dl BORDERLINE HIGH 160 - 189 mg/dl HIGH >190 mg/dl VERY HIGH Performed By: #### DATLIPI, DLDL #### [facility] [address] [place] [address] Dr. Neptali WadeTriglyceride [Mass/Vol]476 mg/dLCritically high<=150[facility] HospitalCom[facility] on above:Performed By: #### MAINOR SUEL #### [facility] [address] [place] [address] Dr. Neptali WadeVLDL CALC95.2 mg/dLRegency Hospital Cleveland WestComhelen newberry [facility] hospital on above: Performed By: #### MANIOR SUEL #### [facility] [address] [place] [address] Dr. Neptali WadeDIRECT LDLon 39-83-8856Jogocgyadxd in LDL [Mass/Vol]116 mg/dL NormalThe [facility] HospitalComhelen [facility] on above:Performed By: #### MAINOR SUEL #### [facility] [address] [place] [address] Dr. Neptali WadeDLDL NORMALSEE BELOWRegency Hospital Cleveland WestComment on above: Result Comment: <100 mg/dl OPTIMAL 100 - 129 mg/dl NEAR OR ABOVE OPTIMAL 130 - 159 mg/dl BORDERLINE HIGH 160 - 189 mg/dl HIGH >190 mg/dl VERY HIGHPerformed By: #### ABBY SUE #### [facility] [address] [place] [address] Dr. Neptali WadeGLYCOHEMOGLOBIN A1Con 54-63-4315MOC RECOMMENDATIONSEE BELOWNoformerly [facility] The [facility] on above:Result Comment: ADA RECOMMENDED LIMIT 4.0 - 6.0 ADA THERAPEUTIC TARGET < 7.0 ACTION SUGGESTED > 7.0Performed By: #### DATA1C #### [facility] [address] [place] [address] Dr. Neptali WadeGlucose [Mass/Vol]100 mg/dLNoThe [facility] HospitalComhel[facility] on above:Performed By: #### DATA1C #### [facility] [address] [place] [address] Dr. Neptali WadeHbA1c (Bld) [Mass fraction]5.1 %Normal4.5-6.2The [facility] on above:Performed By: #### DATA1C #### [facility] [address] [place] [address] Dr. Neptali Wade Vital Signs Date TimeVital SignValuePerforming LtcdmlsvwWrjjrfhu14-48-5419 09:34-0400Body aojroa599.64 cmBenjamin Ball DO Work Phone: [facility]07-08-2025 09:34-0400 Body mass index (BMI) [Ratio]34 kg/r2Klwhzjfn Ball DO Work Phone: [phone]07-08-2025 09:34-0400 Body .76 kgBenjamin Ball DO Work Phone: [phone]14[facility]07-08-2025 09:34-0400 Diastolic blood xeeldena91 mm[Hg]Too Ball DO Work Phone: [phone]07-08-2025 09:34-0400 Heart rate61 /minBenjamin Ball DO Work Phone: [phone]07-08-2025 09:34-0400 Respiratory rate12 /minBenjamin Ball DO Work Phone: [phone]07-08-2025 09:34-0400 Systolic blood uekerhvy956 mm[Hg]Too Ball DO Work Phone: [phone]03-18-2024 10:00-0400 Body uxblgp385.64 cmTuscarawas Hospital03-18-2024 10:00-0400Body mass index (BMI) [Ratio]35.5 kg/r6PjpmizjpbTuscarawas Hospital03-18-2024 10:00-0400Body vwdest73.9 kgTuscarawas Hospital03-18-2024 10:00-0400Diastolic blood dtyiqkfd13 mm[Hg][facility] 01-05-2024 10:00-0400Heart rate71 /[facility] 01-05-2024 10:00-0400Respiratory rate16 /[facility] 01-05-2024 10:00-0400Systolic blood nvwzmaly908 mm[Hg][facility]03-06-2024 11:25-0500Body figdui378.64 cmTuscarawas Hospital03-06-2024 11:25-0500Body mass index (BMI) [Ratio]35.5 kg/m6BmzjhwlaeTuscarawas Hospital03-06-2024 11:25-0500Body peyvzs69.9 kgT[facility]carawas Hospital03-06-2024 11:25-0500Diastolic blood lwkwhuqw85 mm[Hg][facility]03-06-2024 11:25-0500Heart rate58 /[facility]03-06-2024 11:25-0500Respiratory rate20 /minTuscarawas Hospital03-06-2024 11:25-0500Systolic blood hmjfiysm265 mm[Hg][facility]10-30-2023 14:00-0400Body ytjtsr159.64 cmBenjamin Ball Other [facility] [employer] Other 915320-31-2822 14:00-0400Body mass index (BMI) [Ratio] 35.09 kg/e1Chxxbqzz Ball Other [employer] Other 10-30-2023 14:00-0400Body .61 kgBenjamin Ball Other [employer] Other 10-30-2023 14:00-0400Diastolic blood awggmcei61 mm[Hg] Too Ball Other [employer] Other 10-30-2023 14:00-0400Respiratory rate16 /minBenjamin Ball Other [employer] Other 10-30-2023 14:00-0400Systolic blood ursumssc959 mm[Hg] Too Ball Other [employer] Other Encounters Encounter DateEncounter TypeCare ProviderFacilityStart: 04-26-2025 End: 02-78-9093bkewzenbtkUurokjum Ball DO Work Phone: [facility] Work Phone: Start: 04-26-2025 End: 17-18-1773Ogdtvmi encounter procedureBencarlton Gonsalez DO-[facility] Work Phone: Start: 64-46-9004qykgctkfjhKqrtcnjm Ball Facility:[facility]art: 16-19-6486Wapnenu encounter statusBencarlton Gonsalez DO Work Phone: [facility]: 07-15-2024 End: 95-29-3247wzfmzpkseqElcnvoas BallFamercyone clinton medical [facility] Hospitaltart: 06-14-2024 End: 97-95-7574wgxmickreoOQ Too Gonsalez Work Phone: [facility] Work Phone: Start: 06-14-2024 End: 81-88-8480Uqirbdd encounter procedureDO Too Gonsalez Work Phone: [facility] Work Phone: Start: 05-10-2024 End: 26-85-0948tjfqckdfpgFQ Too Gonsalez Work Phone: [facility] Work Phone: Start: 05-10-2024 End: 45-54-5886Zxzzseg encounter procedureDO Too Gonsalez Work Phone: [facility] Work Phone: Start: 02-17-2024 End: 19-69-2655wacqbiksawNyexuugayAshtabula County Medical Center Work Phone: Start: 02-17-2024 End: 15-11-7477Sdwbtcb encounter procedureAdventhealth Physician [facility] Work Phone: Start: 01-05-2024 End: 07-02-3256bhasursxazFqmybqtjtC[facility] Clinic [facility] Work Phone: Start: 01-05-2024 End: 54-89-2521Lcimzxs encounter procedureAdventhealth Physician GroupC[facility] Work Phone: Start: 12-24-2023 End: 37-98-9377Vfdbryb encounter procedureAdventhealth Physician GroupCleveland Clinic [facility] Work Phone: Start: 11-10-2023 End: 37-80-1420yphfneardjQslhtsgr Ball Other [employer] Other Start: 42-53-1468Zngikdxrm encounterToo Gonsalez Medical ClinicStart: 08-18-2023 End: 71-53-5085prgzxdccukIqetnukh Ball Other [employer] Other Start: 10-52-2774Wbrchuuwa for general adult medical examination without abnormal findingsToo Gonsalez Medical ClinicStart: 12-10-2215Ckhihznb preventive med est patient 40-64yrsToo Gonsalez Medical ClinicStart: 25-45-8294rljyllbfbeLO TOO GONSALEZFacility:H1 Procedures DateProcedureProcedure DetailPerforming ClinicianStart: 84-38-0593Rarsx X-ray of right shoulderDO Too Gonsalez Work Phone: Plan of Treatment DateCare ActivityDetailAuthorStart: 45-54-9777Piloy X-ray of right shoulderXR shoulder RT min 2V*[facility] Centertart: 89-06-4223NR Shoulder - right ViewsTuscarawas HospitalMR Lumbar spine WO contrast [facility] HospitalPatient EducationLow back pain in adults [facility] Work Phone: [facility] Immunizations Immunization DateImmunizationNotesCare EhuvpunrTgvnekje64-23-8310pedikcuke, injectable, quadrivalent, preservative freeToo Gonsalez DO Work Phone: [phone]10-07-2022influenza, injectable, quadrivalent, preservative freeBenjamin Ball DO Work Phone: [phone]12-07-2021COVID-19 mRNA-1273 (Moderna)Too Gonsalez DO Work Phone: [facility]09-17-2021influenza, injectable, quadrivalent, preservative freeBenjamin Ball DO Work Phone: [phone]03-12-2021COVID-19 Ad26.COV2.S (Peter)[facility]09-30-2020influenza, injectable, quadrivalent, preservative freeBenjamin Ball DO Work Phone: [phone]10-17-2019influenza virus vaccine, split virus (incl. purified surface antigen)Too Gonsalez Other [place] [employer] Other 126712-25-1672ydeivfcyp virus vaccine, unspecified formulationTuscarawas Hospital06-13-2017diphtheria, tetanus toxoids and acellular pertussis vaccineBenjaajay Gonsalez Other [facility]06-13-2017tetanus toxoid, reduced diphtheria toxoid, and acellular pertussis vaccine, adsorbed Too Gonsalez DO Work Phone: [facility]07-21-2016diphtheria, tetanus toxoids and acellular pertussis vaccine, unspecified formulation Too Gonsalez Other [facility] Payers DatePayer CategoryPayerPolicy [id number] Health [id number] 1960Self-[id number] [id number] Swati [id number] Social History DateTypeDetailFacilityUnknown if ever smokedEnablence Technologies Other Sex Assigned At BirthSex Assigned At BirthWill[place] Wharf [employer] Other Start: 16-10-8075Kmdbjcx smoking status NHISEx-smoker (finding)[facility] Centertart: 71-48-4282Zqv Assigned At [facility] HospitalexMale (finding)[facility] Medical Equipment Procedure CodeEquipment CodeEquipment Original TextEquipment IdentifierDates Repair, hernia, inguinal, laparoscopicAbdominal hernia surgical mesh, composite-polymer([id number] FDAStart: 10-08-2021 Clinical Note 10-16-2024 Note Date & KouxJxfxQtvywria74-35-3193 NotePatient Education Materials Follows: Laceration Care, Adult A laceration is a cut that may go through all layers of the skin. The cut may also go into the tissue that is right under the skin. Some cuts heal on their own. Other cuts need to be closed with stitches (sutures), ynes, skin adhesive strips, or skin glue. Taking care of your cut lowers your risk of infection, helps your injury heal better, and may prevent scarring. General tips ? Keep your wound clean and dry. ? Do not scratch or pick at your wound. ? Wash your hands with soap and water for at least 20 seconds before and after touching your wound or changing your bandage (dressing). If you cannot use soap and water, use hand trader fixed income. ? Do not usedisinfectants or antiseptics, such as rubbing alcohol, to clean your wound unless told by your doctor. ? If you were given a bandage, change it at least once a day, or as told by your doctor. You shouldalso change it if it gets wet or dirty. How to take care of your cut If your doctor used stitches or ynes: ? Keep the wound fully dry for the first 24 hours, or as told by your doctor. After that, you may take a shower or a bath. Do not soak the wound in water until after the stitches or ynes have beentaken out. ? Clean the wound once a day, or as told by your doctor. To do this: ? Wash the wound with soap and water. ? Rinse the wound with water to remove all soap. ? Pat the wound dry with a clean towel. Do not rub the wound. ? After you clean the wound, put a thin layer of antibiotic ointment, another ointment, or a nonstick bandage on it as told by your doctor. This will help to: ? Prevent infection. ? Keep the bandage from sticking to the wound. ? Have your stitches or ynes taken out as told by your doctor. If your doctor used skin adhesive strips: ? Do not get the skin adhesive strips wet. You can take a shower or a bath, but keep the wound dry. ? If the wound gets wet, pat it dry with a clean towel. Do not rub the wound. ? Skin adhesive strips fall off on their own. You can trim the strips as the wound heals. Do not take off any strips that are still stuck to the wound unless told by your doctor. The strips will falloff after a while. If your doctor used skin glue: ? You may take a shower or a bath, but try to keep the wound dry. Do not soak the wound in water. ? After you take a shower or a bath, pat the wound dry with a clean towel. Do not rub the wound. ? Do not do any activities that will make you sweat a lot until the skin glue has fallen off. ? Do not apply liquid, cream, or ointment medicine to your wound while the skin glue is still on. ? If a bandage is placed over the wound, do not put tape right on top of the skin glue. ? Do not pick at the glue. The skin glue usually stays on for 5?10 days. Then, it falls off the skin. Follow these instructions at home: Medicines ? Take [id number] and prescription medicines only as told by your doctor. ? If you were prescribed an antibiotic medicine, take or apply it as told by your doctor. Do not stop using it even if you start to feel better. Managing pain and swelling ? If told, put ice on the injured area. To do this: ? Put ice in a plastic bag. ? Place a towel between your skin and the bag. ? Leave the ice on for 20 minutes, 2?3 times a day. ? Take off the ice if your skin turns bright red. This is very important. If you cannot feel pain, heat, or cold, you have a greater risk of damage to the area. ? Raise the injured area above the level of your heart while you are sitting or lying down. General instructions ? Avoid any activity that could make your wound reopen. ? Check your wound every day for signs of infection. Check for: ? More redness, swelling, or pain. ? Fluid or blood. ? Warmth. ? Pus or a bad smell. ? Keep all follow-up visits. Contact a doctor if: ? You got a tetanus shot and you have any of these problems where the needle went in: ? Swelling. ? Very bad pain. ? Redness. ? Bleeding. ? A wound that was closed breaks open. ? You have a fever. ? You have any of these signs of infection in your wound: ? More redness, swelling, or pain. ? Fluid or blood. ? Warmth. ? Pus or a bad smell. ? You see something coming out of the wound, such as wood or glass. ? Medicine does not make your pain go away. ? You notice a change in the color of your skin near your wound. ? You need to change the bandage often. ? You have a new rash. ? You lose feeling (have numbness) around the wound. Get help right away if: ? You have very bad swelling around the wound. ? Your pain suddenly gets worse and is very bad. ? You have painful lumps near the wound or on skin anywhere on your body. ? You have a red streak going away from your wound. ? The wound is on your hand or foot, and: ? You cannot move a finger or toe. ? Your fingers or toes look pale or bluish. S (more content not included)...[facility] Evaluation note 08-18-2023 Note Date & [id number] Evaluation note* Encounter Date Diagnosis Assessment Notes Treatment Notes Treatment Clinical Notes Jul, Wellness examination (ICD-10 - Z 00.00) Healthy diet and exercise. Reviewed age-appropriate preventive testing recommended. Jul,Mixed hyperlipidemia (ICD-10 - E78.2)Instructed on diet and exercise with continued statin therapy.Discussed the beneficial effects of lowering cholesterol in reducing the risk for cerebrovascular and cardiovascular disease. Jul,Nonalcoholic fatty liver disease (ICD-10 - K76.0)Low fat, high protein diet and exercise. Encouraged to lose weight Encouraged to limit alcohol intake to <3 daily Jul,Morbid (severe) obesity due to excess calories (ICD-10 - E66.01)This patient has been instructed on a low-fat, high-fiber diet. They are instructed to reduce calories, portion sizes and snacks. It is recommended that they exercise for 30 minutes, 3-5 times weekly. Jul,ody mass index [BMI] 35.0-35.9, adult (ICD-10 - Z68.35) Jul,igarette nicotine dependence in remission (ICD-10 - F17.211) Continue abstinence. Jul,Screening PSA (prostate specific antigen) (ICD-10 - Z12.5)Yearly [place] and PSA Jul,OtherThis patient has been instructed on a low-fat, high-fiber diet. They are instructed to reduce calories, portion sizes and snacks. It is recommended that they exercise for 30 minutes, 3-5 times weekly. [employer] Other Evaluation note Note Date & TypeNoteFacilityEvaluation noteNo [facility] [email or web address] Other Evaluation note Note Date & TypeNoteFacilityEvaluation note* Diagnosis Onset Date Resolution Status Lumbar spondylosis acuteObesityacuteLow back painnoneactiveLumbar spondylosisacuteObesityacuteLow back painnoneactive [facility] Work Phone: Evaluation note Note Date & TypeNoteFacilityEvaluation note* Diagnosis Onset Date Resolution Status Obesity acuteLow back painnoneactiveObesityacuteScoliosis of lumbar region due to degenerative disease of spine in adultacuteSpondylolisthesis, lumbar regionacute Low back painnoneactiveChronic painacuteDegenerative disc disease, lumbaracute Other low back painacute [facility] Work Phone: Evaluation note Note Date & TypeNoteFacilityEvaluation note* Diagnosis Onset Date Resolution Status Chronic pain acuteOther low back painacuteOther spondylosis with radiculopathy, lumbar region acuteDJD of right shoulderacuteRight shoulder painacute [facility] Work Phone: Evaluation note Note Date & TypeNoteFacilityEvaluation note* Diagnosis Onset Date Resolution Status DJD of right shoulder acuteRight shoulder painacuteDJD of right shoulderacuteRight shoulder painacute [facility] Work Phone: Evaluation note Note Date & TypeNoteFacilityEvaluation note* Diagnosis Onset Date Resolution Status Admit Date Hypercholesterolemia acuteJuly 2024 9:23amHypertensionacuteJuly 2024 9:23amLumbar spondylosisacuteJuly 2024 9:23amMetabolic dysfunction-associated steatotic liver disease (MASLD)acuteJuly 2024 9:23amNicotine addictionacuteJuly 2024 9:23amObesityacuteJuly 2024 9:23amScreening for colon canceracuteJuly 2024 9:23am [facility] Work Phone: History general Narrative - Reported Note Date & TypeNoteFacilityHistory general Narrative - Reported* Type Description Date Medical History Mixed hyperlipidemia Medical HistoryBilateral carpal tunnel syndromeMedical HistoryNon-alcoholic fatty liver diseaseMedical HistoryCigarette nicotine dependence in remission Surgical Historyknee surgerySurgical Historyright knee replacementSurgical Historyleft partial knee replacementSurgical Historycarpal tunnel release Hospitalization Historysee above [place] [facility] Other Reason for referral (narrative) Note Date & TypeNoteFacilityReason for referral (narrative)No reason for referral information availableW[facility] Work Phone: Summary Purpose Family History Relationship Condition Age at Onset Recorded Date/T meche father Malignant neoplasm of lung Unknown Malignant neoplasm of prostateUnknownDeceasedUnknownNot SpecifiedDeceasedUnknown Malignant neoplasm of lungUnknownsisterDeceasedUnknown Relationship Condition Age at Onset Recorded Date/T meche father Malignant neoplasm of lung Unknown Malignant neoplasm of prostateUnknownDeceasedUnknownmotherDeceasedUnknown Malignant neoplasm of lungUnknownsisterDeceasedUnknown Advance Directives Advance Directive Response Recorded Date/ Time Advance Directives No January 16, 018 2:08pm Chief Complaint and Reason for Visit Chief Complaint back pain back painReason for VisitLumbar spondylosis Obesity Low back pain Lumbar spondylosis Obesity Low back pain Chief Complaint back pain back pain 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 BY DR TOO GONSALEZReconcetta for VisitObesity Low back pain Obesity Scoliosis of lumbar region due to degenerative disease of spine in adult Spondylolisthesis, lumbar region Low back pain Chronic pain Degenerative disc disease, lumbar Other low back pain Chief Complaint 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 REFF BY DR ANA LILIA [place]AM[place]LAIN [place] NEW RT SHOULDER PAIN NX M25.511 - Pain in right shoulderReason for VisitChronic pain Other low back pain Other spondylosis with radiculopathy, lumbar region DJD of right shoulder Right shoulder pain Chief Complaint NEW RT SHOULDER PAIN NX M25.511 - Pain in right shoulder 1 MONTHReason for VisitDJD of right shoulder Right shoulder pain DJD of right shoulder Right shoulder pain Chief Complaint Admit Date 6 month f/u April 26, 2025 9:23a m Reason for Visit Admit Date Hypercholesterolemia April 26, 2025 9:23 am Hypertension April 26, 2025 9:23a m Lumbar spondylosis April 26, 2025 9:23a m Metabolic dysfunction-associ ated steatotic liver disease (MASLD) April 26, 2025 9:23am Nicotine addiction April 26, 2025 9:23a m Obesity April 26, 2025 9:23a m Screening for colon cancer April 26 9:23am Additional Source Comments (unrecognized sect ion and content) No Status Records FoundNo Status Records FoundNo Status Records Found INFORMATION SOURCE (unrecogn ized section and content) DATE CREATED AUTHOR 10/22/2022 [facility] DATE CREATED AUTHOR AUTHOR'S ORGANIZ ATION 05/12/2024 [facility] DATE CREATED AUTHOR AUTHOR'S ORGANIZ ATION 02/22/2025 [facility] REASON FOR VISIT (unrecogniz ed section and content) wellnessLab results Care Teams (unrecognized sec tion and content) Team Status: Active Member Role Status Dates Too Gonsalez DO Primary Care Provider Active Team Status: Inactive Member Role Status Anila Gonsalez DO Primary Care Provide r, Attending Provider Active Start: December 24, 2023 End: December 24, 2023 Team Status: Inactive Member Role Status Dates Too Gonsalez DO Primary Care Provide r, Attending Provider Active Start: January 05, 2024 End: January 05, 2024 Team Status: Inactive Member Role Status Anila Gonsalez DO Primary Care Provide r, Referring Provider Active Start: February 17, 2024 End: February 17, 2024ThBi Hernández ProviderActiveStart: February 17, 2024 End: February 17, 2024 Team Status: Inactive Member Role Status Dates Too Gonsalez DO Primary Care Provider Active Start: May 10, 2024 End: May 10Bi Sy ProviderActiveStart: May 10, 2024 End: May 10, 2024 Team Status: Active Member Role Status Dates Dylon Otoole MD Attending Provider Active Star t: May 10, 2024 Yesenia Eller ProviderActiveStart: May 10, 2024 Team Status: Inactive Member Role Status Dates Dylon Otoole MD Attending Provider Active Star t: May 10, 2024 End: May 10Yesenia Qiu ProviderActiveStart: May 10, 2024 End: May 10, 2024 Team Status: Inactive Member Role Status Dates Too Gonsalez DO Primary Care Provider Active Start: June 14, 2024 End: June 14, 2024Thomas OlePUSHPA giordanottreva ProviderActiveStart: June 14, 2024 End: June 14, 2024 Team Status: Inactive Member Role Status Dates Too Gonsalez DO Primary Care Provider Active Start: April 26, 2025 End: April 26enjaajay Gonsalez DOAttreva ProviderActiveStart: April 26, 2025 End: April 26, 2025 Goals (unrecognized section and content) Goals may [...] BE BASED ON THE PRIMARY CLINICAL RECORDS. [employer] provides no warranty or guarantee of the accuracy or completeness of information in this document.
[2025-08-18 17:01] LABS: Hematocrit 41.8 % (42.0-54.0); Hemoglobin 14.7 g/dL (14.0-18.0); Immature Granulocytes Abs Auto 0.02 10^3/uL (0.00-0.03); Immature Granulocytes Pct Auto 0.4 % (0.0-0.5); Lymphocytes Absolute Auto 1.2 10^3/uL (1.2-3.8); Mean Corpuscular HGB Conc 35.2 g/dL (29.9-35.2); Mean Corpuscular Hemoglobin 32.5 pg (25.9-34.0); Mean Corpuscular Volume 92.3 fL (80.0-94.0); Platelet Count 188 10^3/uL (150-450); Red Blood Count 4.53 10^6/uL (4.70-6.10); White Blood Count 5.3 10^3/uL (4.0-11.0)
[2025-08-18 17:20] LABS: Alanine Aminotransferase 42 U/L (16-63); Albumin Globulin Ratio 1.4; Albumin Level 3.9 g/dL (3.4-5.0); Alkaline Phosphatase 126 U/L (46-116); Anion Gap 14.4; Aspartate Amino Transferase 29 U/L (15-37); Blood Urea Nitrogen 15.0 mg/dL (7.0-18.0); Calcium 9.3 mg/dL (8.5-10.1); Carbon Dioxide 27.6 mmol/L (21.0-32.0); Chloride 106 mmol/L (98-107); Cholesterol 185 mg/dL (<=200); Estimated GFR (African America >60 (>=60 mL/min/1.73m^2); Estimated GFR (Non-African Ame >60 (>=60 mL/min/1.73m^2); Globulin 2.7 g/dL; Glucose 90 mg/dL (74-106); HDL Cholesterol 68 mg/dL (40-60); Potassium 4.0 mmol/L (3.5-5.1); Sodium 144 mmol/L (136-145); Total Protein 6.6 g/dL (6.4-8.2); Triglycerides 167 mg/dL (<=150); VLDL CHOLESTEROL 33.4 mg/dL
== END 2025-08-18 16:20 | disposition home or self-care (01) ==
PROVIDERS: PCP Internal Medicine; Visit Provider Internal Medicine
DX: E78.00 Pure hypercholesterolemia, unspecified (principal); I10 Essential (primary) hypertension; K76.0 Fatty (change of) liver, not elsewhere classified; Z12.5 Encounter for screening for malignant neoplasm of prostate
CPT/HCPCS: 36415; 80053; 80061; 85025; G0103